=== PATIENT | male | born 1950 | race African-American/Black ===

== ENCOUNTER 2016-09-29 19:13 | Inpatient (IN) | payer OTHER ==
[2016-09-29] MEDS ORDERED: ASPIRIN 81 MG CHEWABLE TABLETS PO ONE (19:58)
[2016-09-29] MEDS ORDERED: NITROGLYCERIN SUBLINGUAL 1/150 0.4 MG TAB SL ONE (19:58)
[2016-09-29 20:01] LABS: BASOPHIL 0.5 % (0-2.0); EOSINOPHIL 0.1 % (0-4.5); MCH 33.1 pg (25.7-33.7); MCHC 33.6 g/dl (32.0-35.9); MEAN CELL VOLUME 98.4 fl (80-96); MEAN PLT VOLUME 9.2 fl (7.5-11.1); NEUTROPHILS 78.8 % (42.8-82.8); PLATELET COUNT 157 K/MM3 (134-434); RDW 16.1 % (11.9-15.9)
[2016-09-29] MEDS ORDERED: ASPIRIN 81 MG CHEWABLE TABLETS ONE (20:04)
[2016-09-29 20:15] LABS: INR 1.38 (0.82-1.09); PROTHROMBIN TIME (PATIENT) 15.3 SEC (9.98-11.88)
[2016-09-29 20:47] LABS: MAGNESIUM 1.9 mg/dL (1.8-2.4); PHOSPHOROUS 3.1 mg/dL (2.5-4.9)
[2016-09-29 20:48] LABS: ALBUMIN 3.4 g/dl (3.4-5.0); ANION GAP 11 (8-16); BILIRUBIN,TOTAL 0.6 mg/dL (0.2-1.0); CALCIUM 9.4 mg/dL (8.5-10.1); CO2 29 mmol/L (21-32); GLUCOSE,RANDOM 116 mg/dL (74-106); SGOT/AST 11 U/L (15-37); SGPT/ALT 15 U/L (12-78); TOT PROT 7.3 g/dl (6.4-8.2)
[2016-09-29 20:53] LABS: ALK PHOS 107 U/L (45-117); TROPONIN I < 0.02 ng/ml (0.00-0.05)
--- NOTE | 2016-09-29 20:55 | PDOC ---
History of Present Illness - History of Present Illness Initial Comments: 09/29/16 21:12 Patient is a 66 year old male with significant medical hx of ESRD, H/O HD and peritoneal dialysis, HTN and multiple myeloma (no chemotherapy for several years ) who is presenting to the ED with intermittent chest pain since this morning. Patient reports his chest pain worsens with deep inspiration and occasionally with exertion. He describes his pain as a tightness and it is localized to the center of his chest without any radiation. The patient also endorses some rhinorrhea and one episode of cough. Denies shortness of breath, fever, vomiting, or diarrhea. NKDA PCP : Tasha Coronado Chip Frier : Paloma Quinones Penal Officer: Gagan Garham MD <Angeles Yeboah - Last Filed: 09/29/16 21:12> - General History Source: Patient, Old Records Exam Limitations: No Limitations <Gerardo Torres - Last Filed: 09/29/16 22:12> - General Chief Complaint: Chest Pain Stated Complaint: CHEST PAIN Time Seen by Provider: 09/29/16 19:45 Past History <Angeles Yeboah - Last Filed: 09/29/16 21:12> - Past Medical History Anemia: Yes Asthma: No Cancer: Yes (multiple myeloma) CVA: No COPD: No CHF: No Dementia: No Diabetes: No Dialysis: Yes GI Disorders: No Disorders: No HTN: Yes Liver Disease: No Seizures: No Thyroid Disease: No - Surgical History Abdominal Surgery: No Appendectomy: No Cardiac Surgery: No Cholecystectomy: No Gastric Stapling: No GI Surgery: No Lung Surgery: No Neurologic Surgery: No Orthopedic Surgery: Yes (right shoulder) - Immunization History Td Vaccination: Yes Immunization Up to Date: Yes - Psycho/Social/Smoking Cessation Hx Anxiety: No Suicidal Ideation: No Smoking Status: No Smoking History: Never smoked Have you smoked in the past 12 months: No Number of Cigarettes Smoked Daily: 0 Information on smoking cessation initiated: No Hx Alcohol Use: No Drug/Substance Use Hx: No Substance Use Type: None Hx Substance Use Treatment: No <Gerardo Torres - Last Filed: 09/29/16 22:12> - Past Medical History Allergies/Adverse Reactions: Allergies Allergy/AdvReac Type Severity Reaction Status Date / Time No Known Allergies Allergy Verified 10/12/15 15:06 Home Medications: Ambulatory Orders Sevelamer Carbonate [Renvela -] 2,400 mg PO TID 08/08/13 Aspirin [Ecotrin] 81 mg PO DAILY 09/29/16 Review of Systems - Review of Systems Comments:: 09/29/16 21:13 GENERAL/CONSTITUTIONAL: No fever or chills. No weakness. HEAD, EYES, EARS, NOSE AND THROAT: Rhinorrhea. No change in vision. No ear pain or discharge. No sore throat. CARDIOVASCULAR: Chest pain. No shortness of breath. RESPIRATORY: Cough. No wheezing or hemoptysis. GASTROINTESTINAL: No nausea, vomiting, diarrhea or constipation. GENITOURINARY: No dysuria, frequency, or change in urination. MUSCULOSKELETAL: No joint or muscle swelling or pain. No neck or back pain. SKIN: No rash NEUROLOGIC: No headache, vertigo, loss of consciousness, or change in strength/ sensation. <Angeles Yeboah - Last Filed: 09/29/16 21:12> *Physical Exam - Vital Signs Last Vital Signs Temp Pulse Resp BP Pulse Ox 98.4 F 94 H 18 142/87 100 09/29/16 19:20 09/29/16 19:20 09/29/16 19:20 09/29/16 19:20 09/29/16 19:59 - Physical Exam Comments: 09/29/16 21:14 GENERAL: Awake, alert, and fully oriented, in no acute distress HEAD: No signs of trauma EYES: PERRLA, EOMI, sclera anicteric, conjunctiva clear ENT: Auricles normal inspection, hearing grossly normal, nares patent, oropharynx clear without exudates. Moist mucosa NECK: Normal ROM, supple, no lymphadenopathy, JVD, or masses LUNGS: Breath sounds equal, clear to auscultation bilaterally. No wheezes, and no crackles HEART: Regular rate and rhythm, normal S1 and S2, no murmurs, rubs or gallops ABDOMEN: Soft, nontender, normoactive bowel sounds. No guarding, no rebound. No masses EXTREMITIES: Left upper extremity av fistula with palpable thrill. Normal range of motion, no edema. No clubbing or cyanosis. NEUROLOGICAL: Cranial nerves II through XII grossly intact. Normal speech, normal gait SKIN: Warm, Dry, normal turgor, no rashes or lesions noted. ENDOCRINE: No increased thirst. No abnormal weight change. HEMATOLOGIC/LYMPHATIC: No anemia, easy bleeding, or history of blood clots. ALLERGIC/IMMUNOLOGIC: No hives or skin allergy. <EdiliaAngeles - Last Filed: 09/29/16 21:12> - Vital Signs Last Vital Signs Temp Pulse Resp BP Pulse Ox 98.4 F 94 H 18 142/87 100 09/29/16 19:20 09/29/16 19:20 09/29/16 19:20 09/29/16 19:20 09/29/16 19:59 <Gerardo Torres - Last Filed: 09/29/16 22:12> Heart Score/ECG Review - History History: Moderately suspicious - Electrocardiogram EKG: Non specific repolarization disturbance - Age Age: >/= 65 - Risk Factors Based on the list above the patient has:: >/=3 risk factors or Hx atherosclerotic disease - Troponin Troponin: </= normal limit - Score Heart Score - Total: 6 #1 ECG reviewed & interpreted by me at: 19:25 09/29/16 20:37 NSR 109, no std,iqra, Q wave V1-V2, T wave flat III, QTC 420 msec <Gerardo Torres - Last Filed: 09/29/16 22:12> ED Treatment Course - LABORATORY CBC & Chemistry Diagram: 09/29/16 19:40 09/29/16 19:40 - ADDITIONAL ORDERS Additional order review: Laboratory Results 09/29/16 09/29/16 09/29/16 19:40 19:40 19:40 INR Phosphorus 3.1 D Magnesium 1.9 D Alkaline Phosphatase 107 Creatine Kinase 127 Troponin I < 0.02 Blood Type O POSITIVE Antibody Screen Negative 09/29/16 19:40 INR 1.38 H Phosphorus Magnesium Alkaline Phosphatase Creatine Kinase Troponin I Blood Type Antibody Screen 09/29/16 19:40 RBC 3.43 L D MCV 98.4 H MCHC 33.6 RDW 16.1 H MPV 9.2 Neutrophils % 78.8 D Lymphocytes % 6.4 L D Monocytes % 14.2 H Eosinophils % 0.1 D Basophils % 0.5 - Medications Given in the ED: ED Medications Discontinued Medications Generic Name Dose Route Start Last Admin Trade Name Freq PRN Reason Stop Dose Admin Aspirin 324 mg 09/29/16 19:58 09/29/16 20:14 Asa - PO 09/29/16 19:59 324 mg ONCE ONE Administration Nitroglycerin 0.4 mg 09/29/16 19:58 09/29/16 20:14 Nitrostat - SL 09/29/16 19:59 0.4 mg ONCE ONE Administration <Angeles Yeboah - Last Filed: 09/29/16 21:12> - LABORATORY CBC & Chemistry Diagram: 09/29/16 19:40 09/29/16 19:40 - ADDITIONAL ORDERS Additional order review: Laboratory Results 09/29/16 19:40 INR 1.38 H 09/29/16 19:40 RBC 3.43 L D MCV 98.4 H MCHC 33.6 RDW 16.1 H MPV 9.2 Neutrophils % 78.8 D Lymphocytes % 6.4 L D Monocytes % 14.2 H Eosinophils % 0.1 D Basophils % 0.5 - RADIOLOGY Radiology Studies Ordered: Category Date Time Status CHEST X-RAY PORTABLE* [RAD] Stat Radiology 09/29/16 19:47 Taken - Medications Given in the ED: ED Medications Discontinued Medications Generic Name Dose Route Start Last Admin Trade Name Rk PRN Reason Stop Dose Admin Aspirin 324 mg 09/29/16 19:58 09/29/16 20:14 Asa - PO 09/29/16 19:59 324 mg ONCE ONE Administration Nitroglycerin 0.4 mg 09/29/16 19:58 09/29/16 20:14 Nitrostat - SL 09/29/16 19:59 0.4 mg ONCE ONE Administration <Gerardo Torres - Last Filed: 09/29/16 22:12> Medical Decision Making - Medical Decision Making 09/29/16 20:38 A portion of this note was documented by scribe services under my direction. I have reviewed the details of the note, within reason, and agree with the documentation with the following case summary and management plan written by me. Patient treated in the ED. Nursing notes are reviewed and incorporated into the medical decision-making. Vital signs reviewed. Peripheral IV access obtained by the nurse, laboratory studies are drawn and sent, reviewed and interpreted by myself. Vital Signs Temp Pulse Resp BP Pulse Ox 98.4 F 94 H 18 142/87 100 09/29/16 19:20 09/29/16 19:20 09/29/16 19:20 09/29/16 19:20 09/29/16 19:59 66-year-old male with past medical history multiple myeloma, end-stage renal disease on dialysis with a left upper showing fistula, last dialysis today presents to the emergency department for chest tightness since this morning. Patient had woke up with his chest tightness that was intermittent exertional. Somewhat associate shortness of breath but not constant. Denies diaphoresis or radiation. Denies any abdominal pain. He had went to dialysis includes session by persistent pain so came to the ED. Patient please that he had a negative workup several years ago with a stress test with Dr. Escalante. Patient was given nitroglycerin here with moderate amount of improvement. We'll need to workup for rule out SC. We'll obtain labs including troponin. We'll give aspirin and admit the patient to hospital. 09/29/16 22:11 CBC, BMP 09/29/16 19:40 09/29/16 19:40 CMP Sodium 133 mmol/L (136-145) L 09/29/16 19:40 Potassium 3.1 mmol/L (3.5-5.1) L 09/29/16 19:40 Chloride 93 mmol/L (98-107) L 09/29/16 19:40 Carbon Dioxide 29 mmol/L (21-32) 09/29/16 19:40 Anion Gap 11 (8-16) 09/29/16 19:40 BUN 47 mg/dL (7-18) H D 09/29/16 19:40 Creatinine 15.7 mg/dL (0.7-1.3) H* 09/29/16 19:40 Creat Clearance w eGFR 3.12 (>60) 09/29/16 19:40 Random Glucose 116 mg/dL (74-106) H D 09/29/16 19:40 Calcium 9.4 mg/dL (8.5-10.1) 09/29/16 19:40 Phosphorus 3.1 mg/dL (2.5-4.9) D 09/29/16 19:40 Magnesium 1.9 mg/dL (1.8-2.4) D 09/29/16 19:40 Total Bilirubin 0.6 mg/dL (0.2-1.0) 09/29/16 19:40 AST 11 U/L (15-37) L D 09/29/16 19:40 ALT 15 U/L (12-78) D 09/29/16 19:40 Alkaline Phosphatase 107 U/L (45-117) 09/29/16 19:40 Creatine Kinase 127 IU/L (39-308) 09/29/16 19:40 Troponin I < 0.02 ng/ml (0.00-0.05) 09/29/16 19:40 Total Protein 7.3 g/dl (6.4-8.2) D 09/29/16 19:40 Albumin 3.4 g/dl (3.4-5.0) D 09/29/16 19:40 20 meq potassium ordered for potassium of 3.1 Pt reports feeling better. Given improvement with nitro, case was discussed with Dr. Marroquin. he accepts patient under telemetry admission under Dr. Coronado. <Gerardo Torres - Last Filed: 09/29/16 22:12> *DC/Admit/Observation/Transfer - Attestations Scribe Attestion: 09/29/16 21:15 Documentation prepared by Angeles Yeboah, acting as medical interpreter for Gerardo Torres MD. <Angeles Yeboah - Last Filed: 09/29/16 21:12> - Discharge Dispostion Admit: Yes <Gerardo Torres - Last Filed: 09/29/16 22:12> Diagnosis at time of Disposition: Chest pain Qualifiers: Chest pain type: unspecified Qualified Code(s): R07.9 - Chest pain, unspecified - Discharge Dispostion Condition at time of disposition: Stable - Referrals Referrals: Tasha Coronado MD [Primary Care Provider] -
[2016-09-29 21:12] LABS: CREATININE 15.7 mg/dL (0.7-1.3)
[2016-09-29] MEDS ORDERED: POTASSIUM CHLORIDE TABS 20 MEQ TABLET.ER (FP) PO ONE ×2 (21:31→23:10)
[2016-09-30 03:16] VITALS: BMI 22.6
[2016-09-30 04:19] LABS: TROPONIN I 0.02 ng/ml (0.00-0.05)
[2016-09-30 07:04] LABS: MCH 32.8 pg (25.7-33.7); MCHC 33.3 g/dl (32.0-35.9); MEAN CELL VOLUME 98.4 fl (80-96); MEAN PLT VOLUME 8.9 fl (7.5-11.1); PLATELET COUNT 105 K/MM3 (134-434); WHITE BLOOD COUNT 11.1 K/mm3 (4.0-10.0)
[2016-09-30 08:59] LABS: CALCIUM 8.7 mg/dL (8.5-10.1)
[2016-09-30 09:10] LABS: ALBUMIN 2.6 g/dl (3.4-5.0); BILIRUBIN,TOTAL 0.6 mg/dL (0.2-1.0); MAGNESIUM 1.7 mg/dL (1.8-2.4); PHOSPHOROUS 3.8 mg/dL (2.5-4.9); TOT PROT 5.7 g/dl (6.4-8.2)
[2016-09-30 10:43] LABS: CREATININE 16.3 mg/dL (0.7-1.3)
[2016-09-30 11:32] LABS: TROPONIN I 0.02 ng/ml (0.00-0.05)
--- NOTE | 2016-09-30 12:07 | CONSULT ---
Consult - text type - Consultation Consultation Note: Renal Consult for ESRD on PD This is a 64 /o Gentleman with PMhx of ESRD on PD x 2 years and was on HD before , Hx of Myloma who presented to the ED with complaints of intermittent chest pain. Pt states that he woke up with chest pain yesterday. Denies any N/V, diaphoresis. No radiation. CP is better now but still feels it with deep inspiration. No flank pain. No GARNETT, SOB, Abd pain, N/V/D. Denies any cloudy PD fluid. Clearance with PD has been good when checked in the outpatient HD unit. PMhx: As Above Allergies: NKDA Family Hx: NC Social Hx: No T/A/D ROS: As per HPI, all other pertinent ros negative Home Meds: Home Medications Medication Instructions Recorded Sevelamer Carbonate [Renvela -] 2,400 mg PO TID 08/08/13 Aspirin [Ecotrin] 81 mg PO DAILY 09/29/16 Vital Signs Temperature 98.7 F 09/30/16 09:00 Pulse Rate 89 09/30/16 09:00 Respiratory Rate 18 09/30/16 09:00 Blood Pressure 124/58 09/30/16 09:00 O2 Sat by Pulse Oximetry (%) 97 09/30/16 09:05 Intake & Output 09/27/16 09/28/16 09/29/16 09/30/16 23:59 23:59 23:59 23:59 Intake Total 100 Balance 100 Weight 155 lb 140 lb Gen: NAD, Awake and Alert HEENT: NC/AT, MMM, No JVD CVS: RRR, No audible rub Lungs: CTA Abd: Soft, + distension,No tenderness Ext: No edema, clubbing, cyanosis Neuro: AAOX3, no focal defects CBC, BMP 09/30/16 05:20 09/30/16 05:20 Laboratory Tests 09/30/16 05:20 Calcium 8.7 Phosphorus 3.8 D Magnesium 1.7 L Albumin 2.6 L D A/P 64 /o Gentleman with PMhx of ESRD on PD x 2 years and was on HD before, Hx of Myloma who presented to the ED with complaints of intermittent chest pain. #Chest pain r/o ACS and pericarditis Cardiac Enzymes are negative x 2 [address] with diffuse ST elevations and UT depressions that are consistent with pericarditis ECHO is pending It is unlikely that uremia is the etiology of pericarditis as pt's BUN is not that elevated. Cr remains high as that is not is well cleared with PD but Cr it self is not a uremic toxin. Clearance when tested in the outpatient unit is above gaol. Tele Monitoring Cardiology Evaluation #ESRD on PD Will continue CAPD as inpatient Q6h Pt to perform procedure by himself Pt uses varying solutions throughout the day (1.5/2.5/1.5/extraneal) Trend BUN/Cr Transfer to single room as to decrease infectious risk to the patient #Anemia Trend CBC Will continue GALINA as per schedule #Renal Osteodystrphy Continue phos binder Thank you Will follow Hesham Hughes DO
--- NOTE | 2016-09-30 13:08 | PN ---
Progress Note, Physician Chief Complaint: Pt sitting in the bed No chest pain now,no sob cardiology consult pending - Current Medication List Current Medications: Active Medications Chlorhexidine Gluconate (Hibiclens For Decolonization -) 1 applic TP HS NISSA Peritoneal Dialysis Solution (Dianeal 1.5%) 2,000 mls @ 4,000 mls/hr IP 0600, 1200 NISSA Peritoneal Dialysis Solution (Dianeal 2.5%) 2,500 mls @ 5,000 mls/hr IP 1800 NISSA Mupirocin (Bactroban 2% Cream -) 1 applic TP TID NISSA - Objective Vital Signs: Vital Signs Temperature 98.7 F 09/30/16 09:00 Pulse Rate 89 09/30/16 09:00 Respiratory Rate 18 09/30/16 09:00 Blood Pressure 124/58 09/30/16 09:00 O2 Sat by Pulse Oximetry (%) 97 09/30/16 09:05 Constitutional: Yes: No Distress Eyes: Yes: Conjunctiva Clear HENT: Yes: Atraumatic, Normocephalic Neck: Yes: Supple, Trachea Midline Cardiovascular: Yes: Regular Rate and Rhythm Respiratory: Yes: Regular, CTA Bilaterally Gastrointestinal: Yes: Other (Peritoneal catheter in place) Musculoskeletal: Yes: WNL Extremities: Yes: WNL Edema: No Peripheral Pulses WNL: Yes Neurological: Yes: WNL, Alert, Oriented Psychiatric: Yes: Alert, Oriented Labs: CBC, BMP 09/30/16 05:20 09/30/16 05:20 INR, PTT INR 1.38 (0.82-1.09) H 09/29/16 19:40 - ....Imaging Chest X-ray: Report Reviewed EKG: Report Reviewed Assessment/Plan Chest pain r/o ACS EsRd on dialysis PLAN Cardiology consult Will f/u echo report Continue home meds K suppliment
[2016-09-30] MEDS ORDERED: POTASSIUM CHLORIDE TABS 20 MEQ TABLET.ER (FP) PO ONE (13:09)
--- NOTE | 2016-09-30 13:45 | HP ---
DATE OF ADMISSION: DATE OF DICTATION: 09/30/2016 HISTORY OF PRESENT ILLNESS: Patient is a 66-year-old male, date of 1950, with a past medical history of end-stage renal disease, on peritoneal dialysis, hypertension, multiple myeloma, who came to the emergency room with intermittent chest pain since yesterday morning. Patient reports chest pain worsens with deep inspiration, occasionally with exertion. Patient denies any palpitations, shortness of breath. Occasionally, patient felt tightness and localized to the center of his chest without any radiation. Complains of mild rhinorrhea. No fever. No vomiting. No diarrhea. ALLERGIES: No known drug allergy. MEDICATIONS: Patient is on Renvela and aspirin. SURGICAL HISTORY: History of left knee surgery and right shoulder surgery. SOCIAL HISTORY: Patient lives with the family. No history of smoking, alcohol, or drug. PAST MEDICAL HISTORY: History of anemia, multiple myeloma, end-stage urinary disease, on dialysis. REVIEW OF SYSTEMS: General/Constitutional: No fever. No chills. Head and Neck: Nothing significant. Cardiovascular: Mild chest pain. No shortness of breath. Respiratory: Mild cough. No wheezing. No hemoptysis. Gastrointestinal: No vomiting. No diarrhea. Genitourinary: End-stage renal disease. Musculoskeletal: No joint pain. Neurological: Nothing significant. PHYSICAL EXAMINATION: Vital Signs: On examination of the patient in the emergency room, temperature 98.4, pulse rate 94, respiration 18, blood pressure 142/87, and saturation 100%. General: On examination, the patient awake, alert, oriented, in no acute distress. Head and Neck: Normal. Neck supple. No JVD. Lungs: Equal breath sounds bilaterally. Equally clear to auscultation. No wheeze. No crackles. Heart: First and 2nd sound normal. Abdomen: Soft and nontender. No tenderness. No distention. Peritoneal dialysis catheter in place. Extremities: No edema. Neurological: Cranial nerves II-XII normal. No apparent motor or sensory deficit. Reflexes normal. DIAGNOSTIC DATA: EKG shows normal sinus rhythm, heart rate of 109, left atrial enlargement, T waves were flat in lead III. Chest x-ray shows a large heart, fluid in the horizontal fissure, increased marking in the lung base. Cardiac enzymes x2 negative. CBC normal. CMP: BUN 47, creatinine 15.7, sugar 116, sodium 133, potassium 3.1. INR 1.38. Patient was given nitroglycerin in the ER. Pain relieved. Patient admitted to the floor. ADMITTING DIAGNOSES: Chest pain. End-stage renal disease, on peritoneal dialysis. Hypokalemia. PLAN: Cardiology consult. Renal consult. Continue peritoneal dialysis, aspirin. Will continue Renvela. Will monitor the cardiac enzymes. Renal diet resumed. Patient stable on the floor. Iliana [id number]
[2016-09-30] MEDS ORDERED: GENTAMICIN SO4 0.1% TOP CREAM 15 GM/TUBE TP SCH (14:00)
[2016-09-30] MEDS: MUPIROCIN CA 2% TOPICAL CREAM 15 GM TUBE TP SCH ×2 (15:10→21:17)
[2016-09-30] MEDS: SEVELAMER CARBONATE 800 MG TAB (FP) PO SCH (17:15)
[2016-09-30] MEDS: PERITONEAL DIALYSIS 2.5% SOLN 2,500 ML IP SCH (21:19)
[2016-09-30] MEDS: CHLORHEXIDINE GLUCONATE 4% CLEANSER FOR DECOLONIZATION TP SCH (21:19)
[2016-10-01] MEDS: MUPIROCIN CA 2% TOPICAL CREAM 15 GM TUBE TP SCH ×3 (06:38→21:46)
[2016-10-01] MEDS: PERITONEAL DIALYSIS 1.5% SOLN 2,000 ML IP SCH ×2 (06:39→17:29)
[2016-10-01] MEDS: SEVELAMER CARBONATE 800 MG TAB (FP) PO SCH ×3 (07:59→17:30)
[2016-10-01 08:10] LABS: MCH 32.5 pg (25.7-33.7); MCHC 33.4 g/dl (32.0-35.9); MEAN CELL VOLUME 97.4 fl (80-96); MEAN PLT VOLUME 8.8 fl (7.5-11.1); PLATELET COUNT 100 K/MM3 (134-434); RDW 15.7 % (11.9-15.9); WHITE BLOOD COUNT 6.7 K/mm3 (4.0-10.0)
[2016-10-01 08:50] LABS: ALBUMIN 2.6 g/dl (3.4-5.0); BILIRUBIN,TOTAL 0.4 mg/dL (0.2-1.0); CALCIUM 8.9 mg/dL (8.5-10.1); TOT PROT 5.9 g/dl (6.4-8.2)
[2016-10-01 09:02] LABS: CREATININE 16.1 mg/dL (0.7-1.3)
--- NOTE | 2016-10-01 09:32 | CON.CARD ---
Consult Consult Specialty:: Cardiology Referred by:: Tasha Coronado MD Reason for Consultation:: Chest pain - History of Present Illness Chief Complaint: Chest pain History of Present Illness: Patient is a 66 year old male with underlying history of ESRD, H/O HD and peritoneal dialysis for 2 years, HTN and multiple myeloma (no chemotherapy for several years) presented with complaints of intermittent non-positional pleuritic chest tightness since resolved, he denies associated dyspnea, palpitations, near or true syncope, orthopnea, PND or LE edema,. He also denies any cloudy PD fluid. Clearance with PD has been good when checked in the outpatient HD unit. PMhx: As Above Allergies: NKDA Family Hx: NC Social Hx: No T/A/D ROS: As per HPI, all other pertinent ros negative - History Source History Provided By: Patient Limitations to Obtaining History: No Limitations - Past Medical History Cardio/Vascular: Yes: HTN Renal/: Yes: Renal Failure, Hemodialysis, Other (Peritoneal dialysis) - Past Surgical History Past Surgical History: Yes: AV Fistula/Graft - Alcohol/Substance Use Hx Alcohol Use: No - Smoking History Smoking history: Never smoked Have you smoked in the past 12 months: No Aproximately how many cigarettes per day: 0 Home Medications - Allergies Allergies/Adverse Reactions: Allergies Allergy/AdvReac Type Severity Reaction Status Date / Time No Known Allergies Allergy Verified 10/12/15 15:06 - Home Medications Home Medications: Ambulatory Orders Sevelamer Carbonate [Renvela -] 2,400 mg PO TID 08/08/13 Aspirin [Ecotrin] 81 mg PO DAILY 09/29/16 Review of Systems - Review of Systems Cardiovascular: reports: Chest Pain Vital Signs: Vital Signs Temperature 98.8 F 10/01/16 06:00 Pulse Rate 77 10/01/16 06:00 Respiratory Rate 18 10/01/16 06:00 Blood Pressure 124/68 10/01/16 06:00 O2 Sat by Pulse Oximetry (%) 97 09/30/16 21:00 Constitutional: Yes: No Distress, Calm, Thin Neck: Yes: Supple Respiratory: Yes: Regular, CTA Bilaterally Gastrointestinal: Yes: Normal Bowel Sounds, Soft Cardiovascular: Yes: Regular Rate and Rhythm, Other (No rubs) JVD: No Carotid Bruit: No Heart Sounds: Yes: S1, S2 Murmur: Yes: Systolic Murmur, Grade 2 Edema: No - Other Data Labs, Other Data: CBC, BMP 10/01/16 06:00 10/01/16 06:00 INR, PTT INR 1.38 (0.82-1.09) H 09/29/16 19:40 Troponin, BNP 09/30/16 10:40 Troponin I 0.02 Troponin, BNP 09/30/16 10:40 Troponin I 0.[address] changes c/w pericarditis Imaging - Results Chest X-ray: Report Reviewed (NAD) Problem List - Problems (1) Anemia Code(s): D64.9 - ANEMIA, UNSPECIFIED (2) Thrombocytopenia Code(s): D69.6 - THROMBOCYTOPENIA, UNSPECIFIED (3) End stage renal disease on dialysis Code(s): N18.6 - END STAGE RENAL DISEASE Z99.2 - DEPENDENCE ON RENAL DIALYSIS (4) Pericarditis Code(s): I31.9 - DISEASE OF PERICARDIUM, UNSPECIFIED Qualifiers: Pericarditis type: other type Chronicity: acute Qualified Code(s ): I30.8 - Other forms of acute pericarditis (5) Multiple myeloma in remission Code(s): C90.01 - MULTIPLE MYELOMA IN REMISSION Assessment/Plan Echocardiogram performed 11/19/2014 revealed normal LV size and function with mild MR and TR 1. Chest pain syndrome c/w uremic pericarditis 2. 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 Anemia and thrombocytopenia 4. History of multiple myeloma post autologous stem cell transplant 5. Hypokalemia 6. Hypertension PLAN: 1. Peritoneal dialysis as per the renal team, replete K 3. Resume Toprol XL 25 qd with uptitration as tolerated, continue ASA 3. F/u with echo to assess for effusion, ruled out for OK 4. Thank you for consultative opportunity
[2016-10-01] MEDS: METOPROLOL SUCCINATE 25 MG TAB.SR.24H (FP) PO SCH (10:20)
[2016-10-01] MEDS: ASPIRIN COATED 81 MG TABLET.EC PO SCH (10:20)
[2016-10-01] MEDS ORDERED: POTASSIUM CHLORIDE TABS 20 MEQ TABLET.ER (FP) PO ONE (10:30)
--- NOTE | 2016-10-01 11:21 | EKG ---
Test Reason : Blood Pressure : / mmHG Vent. Rate : 109 BPM Atrial Rate : 109 BPM P-R Int : 188 ms QRS Dur : 082 ms QT Int : 312 ms P-R-T Axes : 048 007 026 degrees QTc Int : 420 ms SINUS TACHYCARDIA POSSIBLE LEFT ATRIAL ENLARGEMENT SEPTAL INFARCT , AGE UNDETERMINED ABNORMAL ECG WHEN COMPARED WITH ECG OF 05-APR-2015 11:16, NO SIGNIFICANT CHANGE WAS FOUND Confirmed by VERA MAGAÑA MD ([id number]) on 10/01/2016 11:21:27 AM Referred By: Confirmed By:VERA MAGAÑA MD
--- NOTE | 2016-10-01 11:28 | EKG ---
Test Reason : Blood Pressure : / mmHG Vent. Rate : 091 BPM Atrial Rate : 091 BPM P-R Int : 174 ms QRS Dur : 090 ms QT Int : 350 ms P-R-T Axes : 055 028 046 degrees QTc Int : 430 ms NORMAL SINUS RHYTHM POSSIBLE LEFT ATRIAL ENLARGEMENT SEPTAL INFARCT (CITED ON OR BEFORE 29-SEP-2016) ST ELEVATION, CONSIDER EARLY REPOLARIZATION, PERICARDITIS, OR INJURY ABNORMAL ECG WHEN COMPARED WITH ECG OF 29-SEP-2016 19:22, ST ELEVATION NOW PRESENT IN INFERIOR LEADS Confirmed by VERA MAGAÑA MD ([id number]) on 10/01/2016 11:28:08 AM Referred By: Confirmed By:VERA MAGAÑA MD
[2016-10-01] MEDS: PERITONEAL DIALYSIS 2.5% SOLN 2,500 ML IP SCH ×2 (12:31→17:35)
[2016-10-01 14:23] LABS: PLATELET ESTIMATE DECREASED (NORMAL)
--- NOTE | 2016-10-01 15:50 | PN ---
Progress Note, Physician Chief Complaint: Pt sitting in the bed No chest pain now,no sob cardiology consult appreciated for ECHO - Current Medication List Current Medications: Active Medications Aspirin (Ecotrin -) 81 mg PO DAILY [facility] Last Admin: 10/01/16 10:20 Dose: 81 mg Chlorhexidine Gluconate (Hibiclens For Decolonization -) 1 applic TP HS [facility] Last Admin: 09/30/16 21:19 Dose: 1 applic Peritoneal Dialysis Solution (Dianeal 1.5%) 2,000 mls @ 4,000 mls/hr IP 0600, 1200 [facility] Last Admin: 10/01/16 06:39 Dose: 4,000 mls/hr Peritoneal Dialysis Solution (Dianeal 2.5%) 2,500 mls @ 5,000 mls/hr IP 1800 [facility] Last Admin: 10/01/16 12:31 Dose: 5,000 mls/hr Metoprolol Succinate (Toprol Xl -) 25 mg PO DAILY [facility] Last Admin: 10/01/16 10:20 Dose: 25 mg Mupirocin (Bactroban 2% Cream -) 1 applic TP TID [facility] Last Admin: 10/01/16 06:38 Dose: 1 applic Sevelamer Carbonate (Renvela -) 2,400 mg PO TIDCM [facility] Last Admin: 10/01/16 12:30 Dose: 2,400 mg - Objective Vital Signs: Vital Signs Temperature 98.2 F 10/01/16 09:00 Pulse Rate 84 10/01/16 09:00 Respiratory Rate 18 10/01/16 09:00 Blood Pressure 110/75 10/01/16 09:00 O2 Sat by Pulse Oximetry (%) 97 10/01/16 09:00 Constitutional: Yes: No Distress Eyes: Yes: Conjunctiva Clear HENT: Yes: Atraumatic, Normocephalic Neck: Yes: Supple, Trachea Midline Cardiovascular: Yes: Regular Rate and Rhythm Respiratory: Yes: Regular, CTA Bilaterally Gastrointestinal: Yes: Normal Bowel Sounds, Soft Musculoskeletal: Yes: WNL Extremities: Yes: WNL Edema: No Peripheral Pulses WNL: Yes Neurological: Yes: WNL, Alert, Oriented ...Motor Strength: WNL Psychiatric: Yes: Alert, Oriented Labs: CBC, BMP 10/01/16 06:00 10/01/16 06:00 INR, PTT INR 1.38 (0.82-1.09) H 09/29/16 19:40 Assessment/Plan Chest pain r/o ACS pericarditis Anemia,thrombocytopenia EsRd on dialysis Multiple myeloma in remission Hypokalemia PLAN Cardiology consult for echo Continue home meds K suppliment monitor CBC and CMP
[2016-10-01] MEDS: CHLORHEXIDINE GLUCONATE 4% CLEANSER FOR DECOLONIZATION TP SCH (21:47)
[2016-10-02] MEDS: MUPIROCIN CA 2% TOPICAL CREAM 15 GM TUBE TP SCH ×2 (06:41→15:17)
[2016-10-02] MEDS: PERITONEAL DIALYSIS 1.5% SOLN 2,000 ML IP SCH ×2 (06:41→15:14)
[2016-10-02 07:36] LABS: MCH 33.9 pg (25.7-33.7); MEAN CELL VOLUME 96.9 fl (80-96); MEAN PLT VOLUME 9.4 fl (7.5-11.1); PLATELET COUNT 97 K/MM3 (134-434); RDW 15.6 % (11.9-15.9); WHITE BLOOD COUNT 5.8 K/mm3 (4.0-10.0)
[2016-10-02 08:03] LABS: ALBUMIN 2.5 g/dl (3.4-5.0); CALCIUM 8.6 mg/dL (8.5-10.1)
[2016-10-02 08:13] LABS: BILIRUBIN,TOTAL 0.6 mg/dL (0.2-1.0); TOT PROT 5.6 g/dl (6.4-8.2)
[2016-10-02 08:45] LABS: CREATININE 16.1 mg/dL (0.7-1.3)
[2016-10-02] MEDS ORDERED: PT OWN MED DRAWER 7, Y5N ONE ×2 (08:48→12:22)
[2016-10-02] MEDS: SEVELAMER CARBONATE 800 MG TAB (FP) PO SCH ×3 (08:50→18:04)
--- NOTE | 2016-10-02 09:12 | PN ---
Progress Note, Physician Chief Complaint: Pt sitting in the bed No chest pain now,no sob cardiology consult appreciated for ECHO today hypokalemia and thrombocytopenia - Current Medication List Current Medications: Active Medications Aspirin (Ecotrin -) 81 mg PO DAILY [facility] Last Admin: 10/01/16 10:20 Dose: 81 mg Chlorhexidine Gluconate (Hibiclens For Decolonization -) 1 applic TP HS [facility] Last Admin: 10/01/16 21:47 Dose: Not Given Peritoneal Dialysis Solution (Dianeal 1.5%) 2,000 mls @ 4,000 mls/hr IP 0600, 1200 [facility] Last Admin: 10/02/16 06:41 Dose: 4,000 mls/hr Peritoneal Dialysis Solution (Dianeal 2.5%) 2,500 mls @ 5,000 mls/hr IP 1800 [facility] Last Admin: 10/01/16 17:35 Dose: Not Given Metoprolol Succinate (Toprol Xl -) 25 mg PO DAILY [facility] Last Admin: 10/01/16 10:20 Dose: 25 mg Mupirocin (Bactroban 2% Cream -) 1 applic TP TID [facility] Last Admin: 10/02/16 06:41 Dose: 1 applic Sevelamer Carbonate (Renvela -) 2,400 mg PO TIDCM [facility] Last Admin: 10/02/16 08:50 Dose: 2,400 mg - Objective Vital Signs: Vital Signs Temperature 98.6 F 10/02/16 06:00 Pulse Rate 80 10/02/16 06:00 Respiratory Rate 20 10/02/16 06:00 Blood Pressure 121/64 10/02/16 06:00 O2 Sat by Pulse Oximetry (%) 98 10/01/16 21:00 Constitutional: Yes: No Distress Eyes: Yes: Conjunctiva Clear HENT: Yes: Atraumatic, Normocephalic Neck: Yes: Supple, Trachea Midline Cardiovascular: Yes: Regular Rate and Rhythm Respiratory: Yes: Regular, CTA Bilaterally Gastrointestinal: Yes: Normal Bowel Sounds, Soft Musculoskeletal: Yes: WNL Extremities: Yes: WNL Edema: No Peripheral Pulses WNL: Yes Neurological: Yes: Alert, Oriented ...Motor Strength: WNL Psychiatric: Yes: WNL, Alert, Oriented Labs: CBC, BMP 10/02/16 05:35 10/02/16 05:35 INR, PTT INR 1.38 (0.82-1.09) H 09/29/16 19:40 Assessment/Plan Chest pain r/o ACS pericarditis Anemia,thrombocytopenia EsRd on dialysis Multiple myeloma in remission Hypokalemia PLAN Cardiology consult for echo Continue home meds K suppliment monitor CBC and CMP hematology consult
[2016-10-02] MEDS: ASPIRIN COATED 81 MG TABLET.EC PO SCH (09:18)
[2016-10-02] MEDS: METOPROLOL SUCCINATE 25 MG TAB.SR.24H (FP) PO SCH (09:18)
[2016-10-02] MEDS ORDERED: POTASSIUM CHLORIDE TABS 20 MEQ TABLET.ER (FP) PO ONE (10:00)
--- NOTE | 2016-10-02 14:01 | PN ---
Progress Note, Physician Chief Complaint: Not in distress History of Present Illness: Patient was seen and examined. Awake and alert. Chart was reviewed Denies chest pain, SOB or palpitations - Current Medication List Current Medications: Active Medications Aspirin (Ecotrin -) 81 mg PO DAILY [facility] Last Admin: 10/02/16 09:18 Dose: 81 mg Chlorhexidine Gluconate (Hibiclens For Decolonization -) 1 applic TP HS [facility] Last Admin: 10/01/16 21:47 Dose: Not Given Peritoneal Dialysis Solution (Dianeal 1.5%) 2,000 mls @ 4,000 mls/hr IP 0600, 1200 [facility] Last Admin: 10/02/16 06:41 Dose: 4,000 mls/hr Peritoneal Dialysis Solution (Dianeal 2.5%) 2,500 mls @ 5,000 mls/hr IP 1800 [facility] Last Admin: 10/01/16 17:35 Dose: Not Given Metoprolol Succinate (Toprol Xl -) 25 mg PO DAILY [facility] Last Admin: 10/02/16 09:18 Dose: 25 mg Mupirocin (Bactroban 2% Cream -) 1 applic TP TID [facility] Last Admin: 10/02/16 06:41 Dose: 1 applic Sevelamer Carbonate (Renvela -) 2,400 mg PO TIDCM [facility] Last Admin: 10/02/16 12:23 Dose: 2,400 mg - Objective Vital Signs: Vital Signs Temperature 98 F 10/02/16 09:00 Pulse Rate 84 10/02/16 09:00 Respiratory Rate 18 10/02/16 09:00 Blood Pressure 110/56 10/02/16 09:00 O2 Sat by Pulse Oximetry (%) 98 10/02/16 09:00 Neck: Yes: Supple Cardiovascular: Yes: Regular Rate and Rhythm, Murmur (Systolic murmur), S1, S2 Respiratory: Yes: CTA Bilaterally Gastrointestinal: Yes: Normal Bowel Sounds, Soft. No: Tenderness Edema: No Labs: CBC, BMP 10/02/16 05:35 10/02/16 05:35 INR, PTT INR 1.38 (0.82-1.09) H 09/29/16 19:40 Problem List - Problems (1) Chest pain Code(s): R07.9 - CHEST PAIN, UNSPECIFIED Qualifiers: Chest pain type: unspecified Qualified Code(s): R07.9 - Chest pain, unspecified (2) End stage renal disease on dialysis Code(s): N18.6 - END STAGE RENAL DISEASE Z99.2 - DEPENDENCE ON RENAL DIALYSIS (3) Multiple myeloma in remission Code(s): C90.01 - MULTIPLE MYELOMA IN REMISSION (4) Pericarditis Code(s): I31.9 - DISEASE OF PERICARDIUM, UNSPECIFIED Qualifiers: Pericarditis type: other type Chronicity: acute Qualified Code(s ): I30.8 - Other forms of acute pericarditis (5) Anemia Code(s): D64.9 - ANEMIA, UNSPECIFIED Assessment/Plan 1. Chest pain syndrome c/w uremic pericarditis 2. 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 Anemia and thrombocytopenia 4. History of multiple myeloma post autologous stem cell transplant 5. Hypokalemia 6. Hypertension PLAN: 1. Continue peritoneal dialysis as per Renal recommendation 3. Continue Toprol XL 25 mg qd with uptitration as tolerated and continue ASA 3. Transthoracic echocardiography to assess LV and valvular function Further plans are to follow Guilherme Willard MD
--- NOTE | 2016-10-02 14:48 | PN ---
Progress Note (short form) - Note Progress Note: Renal Follow up for ESRD on PD Pt seen and examined at the bedside no acute complaints currently states that he is no longer having any chest pain s/p ECHO - no official report available Vital Signs Temperature 98 F 10/02/16 09:00 Pulse Rate 84 10/02/16 09:00 Respiratory Rate 18 10/02/16 09:00 Blood Pressure 110/56 10/02/16 09:00 O2 Sat by Pulse Oximetry (%) 98 10/02/16 09:00 Intake & Output 09/29/16 09/30/16 10/01/16 10/02/16 23:59 23:59 23:59 23:59 Intake Total 580 690 210 Balance 580 690 210 Weight 155 lb 140 lb Gen: NAD, Awake and Alert HEENT: NC/AT, MMM, No JVD CVS: RRR, No audible rub Lungs: CTA Abd: Soft, + distension,No tenderness Ext: No edema, clubbing, cyanosis CBC, BMP 10/02/16 05:35 10/02/16 05:35 Laboratory Tests 10/02/16 05:35 Calcium 8.6 Albumin 2.5 L Current Medications Aspirin (Ecotrin -) 81 mg PO DAILY [facility] Last Admin: 10/02/16 09:18 Dose: 81 mg Chlorhexidine Gluconate (Hibiclens For Decolonization -) 1 applic TP HS [facility] Last Admin: 10/01/16 21:47 Dose: Not Given Peritoneal Dialysis Solution (Dianeal 1.5%) 2,000 mls @ 4,000 mls/hr IP 0600, 1200 [facility] Last Admin: 10/02/16 06:41 Dose: 4,000 mls/hr Peritoneal Dialysis Solution (Dianeal 2.5%) 2,500 mls @ 5,000 mls/hr IP 1800 [facility] Last Admin: 10/01/16 17:35 Dose: Not Given Metoprolol Succinate (Toprol Xl -) 25 mg PO DAILY [facility] Last Admin: 10/02/16 09:18 Dose: 25 mg Mupirocin (Bactroban 2% Cream -) 1 applic TP TID [facility] Last Admin: 10/02/16 06:41 Dose: 1 applic Sevelamer Carbonate (Renvela -) 2,400 mg PO TIDCM [facility] Last Admin: 10/02/16 12:23 Dose: 2,400 mg A/P 64 /o Gentleman with PMhx of ESRD on PD x 2 years and was on HD before, Hx of Myloma who presented to the ED with complaints of intermittent chest pain. #Chest pain with suspected pericarditis ECHO results pending Chest pain appears resolved although uremic pericarditis is a possibility(usually when BUN > 60 and pt having poor clearance), pt is getting good clearance with PD so unlikely that change to Hemodialysis will be of much benefit Cardiology follow up #ESRD on PD Will continue CAPD as inpatient Q6h Dose all med for PD would avoid NSAIDs given pt has some residual renal function #Anemia Trend CBC Will continue GALINA as per schedule #Renal Osteodystrphy Continue phos binder Thank you Will follow Hesham Hughes DO
[2016-10-02] MEDS ORDERED: POTASSIUM CHLORIDE TABS 20 MEQ TABLET.ER (FP) PO SCH (15:00)
[2016-10-02] MEDS ORDERED: EPOETIN ALFA 20,000 UNIT/1 ML VIAL SQ ONE (16:30)
--- NOTE | 2016-10-02 17:46 | CONSULT ---
Consult - text type - Consultation Consultation Note: This is a 64 /o Gentleman with PMhx of ESRD on PD x 2 years and was on HD before , Hx of Myloma who presented to the ED with complaints of intermittent chest pain. Pt states that he woke up with chest pain. Denies any N/V, diaphoresis. No radiation. CP is better now but still feels it with deep inspiration. No flank pain. No GARNETT, SOB, Abd pain, N/V/D. Feels much better PMhx: As Above Allergies: NKDA ROS: As per HPI, all other pertinent ros negative Ambulatory Orders Sevelamer Carbonate [Renvela -] 2,400 mg PO TID 08/08/13 Aspirin [Ecotrin] 81 mg PO DAILY 09/29/16 Current Medications Aspirin (Ecotrin -) 81 mg PO DAILY [facility] Last Admin: 10/02/16 09:18 Dose: 81 mg Chlorhexidine Gluconate (Hibiclens For Decolonization -) 1 applic TP HS [facility] Last Admin: 10/01/16 21:47 Dose: Not Given Peritoneal Dialysis Solution (Dianeal 1.5%) 2,000 mls @ 4,000 mls/hr IP 0600, 1200 [facility] Last Admin: 10/02/16 15:14 Dose: 4,000 mls/hr Peritoneal Dialysis Solution (Dianeal 2.5%) 2,500 mls @ 5,000 mls/hr IP 1800 [facility] Last Admin: 10/01/16 17:35 Dose: Not Given Metoprolol Succinate (Toprol Xl -) 25 mg PO DAILY [facility] Last Admin: 10/02/16 09:18 Dose: 25 mg Mupirocin (Bactroban 2% Cream -) 1 applic TP TID [facility] Last Admin: 10/02/16 15:17 Dose: 1 applic Potassium Chloride (K-Dur -) 40 meq PO DAILY [facility] Last Admin: 10/02/16 15:14 Dose: 40 meq Sevelamer Carbonate (Renvela -) 2,400 mg PO TIDCM [facility] Last Admin: 10/02/16 12:23 Dose: 2,400 mg Last Vital Signs Temp Pulse Resp BP Pulse Ox 98.3 F 118 H 20 119/74 98 10/02/16 15:54 10/02/16 15:54 10/02/16 15:54 10/02/16 15:54 10/02/16 09:00 Gen: NAD, Awake and Alert HEENT: NC/AT, MMM, No JVD CVS: RRR, No audible rub Lungs: CTA Abd: Soft, + distension,No tenderness Ext: No edema, clubbing, cyanosis Neuro: AAOX3, no focal defects Abnormal Lab Results 10/02/16 10/02/16 05:35 05:35 RBC 2.91 L Hgb 9.9 L Hct 28.1 L MCV 96.9 H Plt Count 97 L Monocytes % 25.0 H Sodium 135 L Potassium 3.1 L Chloride 92 L BUN 54 H Creatinine 16.1 H* AST 10 L D ALT 9 L D Total Protein 5.6 L Albumin 2.5 L A/P 64 y/o Gentleman with PMhx of ESRD on PD x 2 years and was on HD before, Hx of Myeloma who presented to the ED with complaints of intermittent chest pain. PAtient is s/p autologous SCT for myeloma at [facility] Has been noncompliant with follow up Has not gone there since 2011 Very reluctant to start any treatment recheck skeletal survey/protein studies rediscussed need for close f/u, need for myeloma treatment mild thrombocytopenia --check blood cultures
[2016-10-02] MEDS: PANTOPRAZOLE 40 MG TABLET (FP) PO SCH (18:52)
[2016-10-02] MEDS: PERITONEAL DIALYSIS 2.5% SOLN 2,500 ML IP SCH (18:53)
[2016-10-03 06:29] VITALS: TEMP 98
--- NOTE | 2016-10-03 07:13 | PN ---
Progress Note (short form) - Note Progress Note: Chief Complaint: Events noted, notes reviewed, denies any further chest pain, denies any dyspnea History of Present Illness: Seen and examined on telemetry. Events noted, notes reviewed, denies any further chest pain, denies any dyspnea Echocardiography revealed normal LV systolic function, trace MR, mild TR and evidence of pericardial effusion - Current Medication List Current Medications Aspirin (Ecotrin -) 81 mg PO DAILY [facility] Last Admin: 10/03/16 09:22 Dose: 81 mg Chlorhexidine Gluconate (Hibiclens For Decolonization -) 1 applic TP HS [facility] Last Admin: 10/01/16 21:47 Dose: Not Given Peritoneal Dialysis Solution (Dianeal 1.5%) 2,000 mls @ 4,000 mls/hr IP 0600, 1200 [facility] Last Admin: 10/02/16 15:14 Dose: 4,000 mls/hr Peritoneal Dialysis Solution (Dianeal 2.5%) 2,500 mls @ 5,000 mls/hr IP 1800 [facility] Last Admin: 10/02/16 18:53 Dose: 5,000 mls/hr Metoprolol Succinate (Toprol Xl -) 25 mg PO DAILY [facility] Last Admin: 10/03/16 09:22 Dose: 25 mg Mupirocin (Bactroban 2% Cream -) 1 applic TP TID [facility] Last Admin: 10/03/16 09:22 Dose: Not Given Pantoprazole Sodium (Protonix -) 40 mg PO DAILY [facility] Last Admin: 10/03/16 09:22 Dose: 40 mg Sevelamer Carbonate (Renvela -) 2,400 mg PO TIDCM [facility] Last Admin: 10/03/16 08:44 Dose: 2,400 mg Review of Systems Cardiovascular: As noted above Respiratory: denies: denies: Cough or Sputum Production Gastrointestinal: denies: Nausea, Vomiting, Diarrhea, Constipation or Abdominal Discomfort Musculoskeletal: No Symptoms Reported Endocrine: No Symptoms Reported - Objective Vital Signs: Last Vital Signs Temp Pulse Resp BP Pulse Ox 98 F 80 20 120/70 98 10/03/16 06:28 10/03/16 06:28 10/03/16 06:28 10/03/16 06:28 10/02/16 21:00 Neck: Supple Negative JVD No Bruit Cardiovascular: S1 S2 Regular Rate and Rhythm Grade 2/6 Systolic Ejection Murmur Respiratory: Clear to A&P Bilaterally Gastrointestinal: Soft Benign Normal Bowel Sounds Ext: No Edema Labs: CBC, BMP 10/03/16 05:35 10/03/16 05:35 Assessment/Plan ASSESSMENT: 1. Chest pain syndrome and EKG findings consistent with acute pericarditis 2. ESRD on PD 3. Anemia and thrombocytopenia 4. History of multiple myeloma post autologous stem cell transplant 5. Hypertension PLAN: 1. Continue peritoneal dialysis as per renal recommendation 2. Continue Toprol XL 3. Continue ASA 4. Can be D/C from cardiovascular point of view and F/U in the office in 2-3 weeks for further evaluation including a repeat echocardiography to assess pericardial space Above was reviewed in detail with the patient Gagan Graham MD
[2016-10-03 07:22] LABS: MCH 32.5 pg (25.7-33.7); MCHC 33.6 g/dl (32.0-35.9); MEAN CELL VOLUME 96.7 fl (80-96); MEAN PLT VOLUME 9.5 fl (7.5-11.1); PLATELET COUNT 105 K/MM3 (134-434); RDW 15.5 % (11.9-15.9); WHITE BLOOD COUNT 5.6 K/mm3 (4.0-10.0)
[2016-10-03 07:42] LABS: ALBUMIN 2.5 g/dl (3.4-5.0); BILIRUBIN,TOTAL 0.4 mg/dL (0.2-1.0); CALCIUM 8.4 mg/dL (8.5-10.1); TOT PROT 5.6 g/dl (6.4-8.2)
[2016-10-03 07:50] LABS: THYROID STIMULATING HORMONE 4.51 uIU/ml (0.358-3.74)
[2016-10-03] MEDS: SEVELAMER CARBONATE 800 MG TAB (FP) PO SCH (08:44)
--- NOTE | 2016-10-03 09:04 | PN ---
Progress Note, Physician Chief Complaint: Pt sitting in the bed No chest pain now,no sob cardiology cleared for discharge ECHO report noted pt refused bone bone survey as per pt does not wants to do w/u for multiple myeloma pt wants to go home - Current Medication List Current Medications: Active Medications Aspirin (Ecotrin -) 81 mg PO DAILY [facility] Last Admin: 10/02/16 09:18 Dose: 81 mg Chlorhexidine Gluconate (Hibiclens For Decolonization -) 1 applic TP HS [facility] Last Admin: 10/01/16 21:47 Dose: Not Given Peritoneal Dialysis Solution (Dianeal 1.5%) 2,000 mls @ 4,000 mls/hr IP 0600, 1200 [facility] Last Admin: 10/02/16 15:14 Dose: 4,000 mls/hr Peritoneal Dialysis Solution (Dianeal 2.5%) 2,500 mls @ 5,000 mls/hr IP 1800 [facility] Last Admin: 10/02/16 18:53 Dose: 5,000 mls/hr Metoprolol Succinate (Toprol Xl -) 25 mg PO DAILY [facility] Last Admin: 10/02/16 09:18 Dose: 25 mg Mupirocin (Bactroban 2% Cream -) 1 applic TP TID [facility] Last Admin: 10/02/16 15:17 Dose: 1 applic Pantoprazole Sodium (Protonix -) 40 mg PO DAILY [facility] Last Admin: 10/02/16 18:52 Dose: 40 mg Potassium Chloride (K-Dur -) 40 meq PO DAILY [facility] Last Admin: 10/02/16 15:14 Dose: 40 meq Sevelamer Carbonate (Renvela -) 2,400 mg PO TIDCM [facility] Last Admin: 10/03/16 08:44 Dose: 2,400 mg - Objective Vital Signs: Vital Signs Temperature 98 F 10/03/16 06:28 Pulse Rate 80 10/03/16 06:28 Respiratory Rate 20 10/03/16 06:28 Blood Pressure 120/70 10/03/16 06:28 O2 Sat by Pulse Oximetry (%) 98 10/02/16 21:00 Constitutional: Yes: No Distress Eyes: Yes: Conjunctiva Clear HENT: Yes: Atraumatic, Normocephalic Neck: Yes: Supple, Trachea Midline Cardiovascular: Yes: Regular Rate and Rhythm Respiratory: Yes: Regular, CTA Bilaterally Gastrointestinal: Yes: Normal Bowel Sounds, Soft Musculoskeletal: Yes: WNL Extremities: Yes: WNL Edema: No Peripheral Pulses WNL: Yes Neurological: Yes: WNL, Alert, Oriented Psychiatric: Yes: Alert, Oriented Labs: CBC, BMP 10/03/16 05:35 10/03/16 05:35 INR, PTT INR 1.38 (0.82-1.09) H 09/29/16 19:40 Assessment/Plan Chest pain r/o ACS pericarditis EsRd on dialysis Multiple myeloma in remission PLAN Cardiology cleared for surgery Continue home meds pt refused skeletal survey and further w/u for multiple myeloma pt wants to go home d/c home
[2016-10-03] MEDS: ASPIRIN COATED 81 MG TABLET.EC PO SCH (09:22)
[2016-10-03] MEDS: MUPIROCIN CA 2% TOPICAL CREAM 15 GM TUBE TP SCH (09:22)
[2016-10-03] MEDS: PANTOPRAZOLE 40 MG TABLET (FP) PO SCH (09:22)
[2016-10-03] MEDS: METOPROLOL SUCCINATE 25 MG TAB.SR.24H (FP) PO SCH (09:22)
[2016-10-03 09:55] VITALS: BP 120/80; PULSE 84
[2016-10-03 10:03] LABS: CREATININE 15.9 mg/dL (0.7-1.3)
[2016-10-03 12:11] LABS: PLATELET ESTIMATE DECREASED (NORMAL)
--- NOTE | 2016-10-03 15:14 | PN ---
Progress Note (short form) - Note Progress Note: Renal Follow up for ESRD on PD Pt seen and examined at the bedside no acute complaints for discharge today Vital Signs Temperature 98 F 10/03/16 09:00 Pulse Rate 84 10/03/16 09:00 Respiratory Rate 20 10/03/16 09:00 Blood Pressure 120/80 10/03/16 09:00 O2 Sat by Pulse Oximetry (%) 98 10/03/16 09:00 Intake & Output 09/30/16 10/01/16 10/02/16 10/03/16 23:59 23:59 23:59 23:59 Intake Total 580 690 210 Output Total 1200 Balance 580 690 -990 Weight 140 lb Gen: NAD, Awake and Alert HEENT: NC/AT, MMM, No JVD CVS: RRR, No audible rub Lungs: CTA Abd: Soft, + distension,No tenderness Ext: No edema, clubbing, cyanosis CBC, BMP 10/03/16 05:35 10/03/16 05:35 A/P 64 /o Gentleman with PMhx of ESRD on PD x 2 years and was on HD before, Hx of Myloma who presented to the ED with complaints of intermittent chest pain. #Chest pain with suspected pericarditis ECHO showed no effusions chest pain now resolved to have repeat ECHO done as outpatient #ESRD on PD Continue CAPD To follow with dialysis unit as outpatient #Anemia Trend CBC Will continue GALINA as per schedule #Renal Osteodystrphy Continue phos binder Thank you Will follow Hesham Hughes DO
[2016-10-05 06:06] LABS: HEMATOCRIT 29.2 % (37.5-51.0)
[2016-10-05 15:40] LABS: FREE T4 1.24 ng/dl (0.76-1.16)
== END 2016-10-03 11:22 | disposition home or self-care (01) | DRG 314 ==
LOC: JER 19:13 → JERBED 22:12 → J4W 09-30 00:23
PROVIDERS: ADMIT Family Medicine; ATTEND Family Medicine
DX: I31.9 Disease of pericardium, unspecified (principal); N18.6 End stage renal disease; I12.0 Hypertensive chronic kidney disease with stage 5 chronic kidney disease or end stage renal disease; C90.01 Multiple myeloma in remission; D64.9 Anemia, unspecified; D69.6 Thrombocytopenia, unspecified; E87.6 Hypokalemia
CPT/HCPCS: 36415; 71010-TC; 80053; 82550; 82607; 82747; 83735; 83883; 84100; 84439; 84443; 84484; 85014; 85025; 85027; 85610; 86850; 86900; 86901; 87040; 93005; 93010; 93306-TC; 99285-25; J0885

== ENCOUNTER 2017-06-18 11:07 | Day surgery (SDC) | payer OTHER ==
[2017-06-15 10:28] VITALS: BMI 22.6
[2017-06-18] MEDS ORDERED: SUCCINYLCHOLINE CHLORIDE 200 MG/10 ML VIAL ONE (14:44)
[2017-06-18] MEDS ORDERED: MIDAZOLAM HCL 2 MG/2 ML SINGLE DOSE VIAL ONE (14:44)
--- NOTE | 2017-06-18 14:54 | HP ---
Satellite [facility] - Chief Complaint History of Present Illness: 66 yearold man ESRD on peritoneal dialysis who developed infection around catheter exit site. No peritonitis. He has a functioning AV fistula for dialysis. - Past Medical History Allergies/Adverse Reactions: Allergies Allergy/AdvReac Type Severity Reaction Status Date / Time No Known Allergies Allergy Verified 06/18/17 12:36 Cardiovascular: Yes: HTN Renal/: Yes: Renal Failure, Hemodialysis, Other (Peritoneal dialysis) Heme/Onc: Yes: Other (Multiple myeloma) - Current Medications Current Medications: Home Medications Medication Instructions Recorded Sevelamer Carbonate [Renvela -] 2,400 mg PO TID 08/08/13 Metoprolol Succinate [Toprol XL -] 25 mg PO DAILY #30 10/03/16 Satellite Physical Exam - Physical Examination Vital Signs: Vital Signs Period Temp Pulse Resp BP Sys/Posada Pulse Ox Last 24 Hr 98.1 F 65 16 146/87 100 General Appearance: Alert & Oriented x3 ENT: Clear Lung: Clear to auscultation Heart: Regular rate & rhythm Abdomen: Soft, Other (LLQ dialysis catheter with granuloma at exit site) Satellite Impression/Plan - Impression/Plan Impression: Complication of PD catheter. Operative Procedure: Removal and replacement of PD catheter. Date to be Performed: 06/18/17
[2017-06-18] MEDS ORDERED: PROPOFOL 20 ML ONE ×3 (14:57→16:06)
[2017-06-18] MEDS ORDERED: METOPROLOL TARTRATE 5 MG/5 ML VIAL ONE (14:59)
[2017-06-18] MEDS ORDERED: LIDOCAINE HCL 2% JELLY (5 ML/TUBE) ONE (14:59)
[2017-06-18] MEDS ORDERED: ETOMIDATE 20 MG/10 ML AMPUL IVPUSH ONE (14:59)
[2017-06-18] MEDS ORDERED: GLYCOPYRROLATE 0.2 MG/1 ML VIAL ONE (15:32)
[2017-06-18] MEDS ORDERED: ePHEDrine SULFATE 50 MG/1 ML AMPULE ONE (15:41)
[2017-06-18] MEDS ORDERED: BUPIVACAINE HCL/PF 0.5% (5MG/ML) 10 ML VIAL IJ ONE (15:45)
[2017-06-18] MEDS ORDERED: BACITRACIN 15 GM TUBE TOPICAL OINTMENT ONE (16:31)
--- NOTE | 2017-06-18 17:05 | OP ---
Operative Note - Note: Operative Date: 06/18/17 Pre-Operative Diagnosis: Malfunction of peritoneal dialysis catheter Operation: Laparoscopic placement of Peritoneal dialysis catheter. Removal of peritoneal dialysis catheter Findings: Old catheter in LLQ with exit site infection. Implants: [place] neck Tenckhoff catheter Post-Operative Diagnosis: Same as Pre-op Surgeon: Cholo Joseph Anesthesiologist/JANITORIAL MAINTENANCE WORKER: Harley Foss Anesthesia: General Specimens Removed: Old PD catheter
[2017-06-18] MEDS ORDERED: ACETAMINOPHEN 325 MG TABLET (FP) PO PRN ×2 (17:15→17:16)
[2017-06-18] MEDS ORDERED: oxyCODONE HCL 5 MG TABLET PO PRN ×3 (17:15→17:42)
[2017-06-18] MEDS ORDERED: ONDANSETRON 4 MG/2 ML VIAL IVPUSH PRN (17:42)
[2017-06-18 19:04] VITALS: BP 146/88; PULSE 70
[2017-06-18 19:33] VITALS: TEMP 97.5
--- NOTE | 2017-06-20 15:39 | PATH ---
Surgical Pathology Report Patient Name: MELIA WOODY Med. Rec. #: [id number] /Age/Gender: 1950 (Age: 66) / M Account: [id number] Location: [facility] SURGICAL Taken: 06/18/2017 Received: 06/19/2017 Reported: 06/20/2017 Physicians: Cholo Joseph M.D. Specimen(s) Received REMOVED CATHETER Clinical History End stage renal disease Final Diagnosis PERITONEAL DIALYSIS CATHETER, REMOVAL: PERITONEAL DIALYSIS CATHETER. MACROSCOPIC DIAGNOSIS. Electronically Signed Kiki Calhoun M.D. Gross Description Received fresh labeled "removed catheter," are 2 portions of tubing measuring 21.0 and 23.5 cm in length. The longer portion displays an attached henson metallic portion of hardware. No sections are submitted, gross only. 06/19/201706/19/2017
== END 2017-06-18 19:05 | disposition home or self-care (01) ==
LOC: JASU-SURG 11:07
PROVIDERS: ATTEND Surgery
PROC: 0WWG43Z Revision of Infusion Device in Peritoneal Cavity, Percutaneous Endoscopic Approach (ICD-10-PCS; principal; 2017-06-18 14:00)
DX: T85.611A Breakdown (mechanical) of intraperitoneal dialysis catheter, initial encounter (principal); I12.0 Hypertensive chronic kidney disease with stage 5 chronic kidney disease or end stage renal disease; N18.6 End stage renal disease; Z99.2 Dependence on renal dialysis
CPT/HCPCS: 36415; 84132; 88300-TC

== ENCOUNTER 2017-07-04 16:32 | Emergency (ER) | payer OTHER ==
[2017-07-04] MEDS ORDERED: ONDANSETRON *ODT* 4 MG TABLET SL ONE (16:52)
[2017-07-04 16:54] VITALS: BMI 22.4
--- NOTE | 2017-07-04 16:55 | PDOC ---
Rapid Medical Evaluation Time Seen by Provider: 07/04/17 16:50 Medical Evaluation: Allergies Allergy/AdvReac Type Severity Reaction Status Date / Time No Known Allergies Allergy Verified 06/18/17 12:36 07/04/17 16:50 I have performed a brief in person evaluation of this patient. The patient presents with chief complaint of : high blood pressure and vomiting today after dialysis denies headache . Pt states watery stool last night. no abd pain or fever. Pertinent PE findings: no acute distress 195/84 I have ordered the following: labs, zofran The patient will proceed to the ER for further evaluation. 07/04/17 16:54
[2017-07-04 17:16] LABS: BASO % 0.4 % (0-2.0); EOS % 1.3 % (0-4.5); MCH 32.1 pg (25.7-33.7); MEAN CELL VOLUME 97.3 fl (80-96); MEAN PLT VOLUME 9.1 fl (7.5-11.1); NEUT % 75.7 % (42.8-82.8); PLATELET COUNT 103 K/MM3 (134-434); RDW 15.7 % (11.9-15.9); WHITE BLOOD COUNT 7.8 K/mm3 (4.0-10.0)
[2017-07-04 17:41] LABS: ALBUMIN 3.3 g/dl (3.4-5.0); AMYLASE 124 U/L (25-115); ANION GAP 7 (8-16); BILIRUBIN,TOTAL 0.5 mg/dL (0.2-1.0); CALCIUM 8.7 mg/dL (8.5-10.1); CO2 30 mmol/L (21-32); CREATININE 6.9 mg/dL (0.7-1.3); GLUCOSE,RANDOM 93 mg/dL (74-106); SGOT/AST 14 U/L (15-37); SGPT/ALT 14 U/L (12-78); TOT PROT 6.9 g/dl (6.4-8.2)
[2017-07-04 17:42] LABS: ALK PHOS 102 U/L (45-117)
[2017-07-04] MEDS ORDERED: ONDANSETRON *ODT* 4 MG TABLET ONE (17:45)
[2017-07-04 18:18] LABS: MCH 31.9 pg (25.7-33.7); MCHC 32.7 g/dl (32.0-35.9); MEAN CELL VOLUME 97.4 fl (80-96); MEAN PLT VOLUME 9.3 fl (7.5-11.1); PLATELET COUNT 101 K/MM3 (134-434); WHITE BLOOD COUNT 8.8 K/mm3 (4.0-10.0)
--- NOTE | 2017-07-04 18:25 | PDOC ---
Attending Attestation - Medical Decision Making 8:56pm Call was placed to Dr. Marroquin, parks and recreation worker physician for Dr. Coronado. Case was discussed. Documentation prepared by Kerry Wellington, acting as medical biller for Katerina Su MD. <Kerry Wellington - Last Filed: 07/04/17 21:00> - Resident Resident Name: Branden Aragon - ED Attending Attestation I have performed the following: I have examined & evaluated the patient, The case was reviewed & discussed with the resident, I agree w/resident's findings & plan, Exceptions are as noted - HPI HPI: 07/04/17 18:35 66-year-old male with a history of end-stage renal disease secondary to multiple myeloma which was treated many years ago was previously on peritoneal dialysis until the end of last month at which time the tube was taken out because it was leaking. Subsequently he has been getting hemodialysis previously Sunday, switch to Sunday this week [facility] left upper extremity AV fistula. Patient states that he has not taken any blood pressure medications since he was switched to peritoneal dialysis he previously had been on metoprolol 25 mg daily. He is denying any chest pain no shortness of breath no abdominal pain did have 2 episodes of emesis today. At dialysis his blood pressure was elevated which is why he was sent to the ED for evaluation otherwise patient has currently no complaints denies vertigo denies headache or fever or chills no cough - Physicial Exam PE: 07/04/17 18:37 Awake alert no acute distress heart is regular without any murmurs rubs or gallops abdomen is soft and nontender. Lungs are clear bilaterally except for faint crackles at bases bilaterally normal respiratory effort. No wheezing appreciated. Skin is warm dry no rash left upper extremity fistula is clean dry and intact with good really bilateral lower extremities are without edema warm and well perfused. - Medical Decision Making 07/04/17 18:38 66 year-old male currently on hemodialysis temporarily pending peritoneal dialysis catheter placement with an elevated blood pressure after dialysis relatively symptomatic. Exam is unremarkable differential includes end organ damage. abnormality patient's abdomen is nontender we'll obtain labs EKG chest x -ray antiemetics pending workup patient will possibly be discharge home with close follow-up 07/04/17 21:[address] Kim who was covering for would like the patient started on amlodipine 5 mg daily will see the patient within the next 48 hours for repeat blood pressure check patient is tolerating by mouth and feeling better discharged home labs unremarkable chest x-ray negative <Katerina Su - Last Filed: 07/04/17 21:03> Heart Score/ECG Review #1 General ECG Interpretation: Sinus Rhythm, Normal Rate (84), Normal Intervals, No acute ischemic changes Compared to previous ECG there are: No significant change 07/04/17 18:25 comparison 09/2016 - ECG Intrepretation Rhythm: Regular Rhythm - [place]: Left [place] Deviation <Katerina Su - Last Filed: 07/04/17 21:03>
--- NOTE | 2017-07-04 18:36 | PDOC ---
History of Present Illness - General Chief Complaint: Blood Pressure Problem Stated Complaint: BLOOD PRESSURE Time Seen by Provider: 07/04/17 16:50 History Source: Patient Exam Limitations: No Limitations - History of Present Illness Initial Comments: 07/04/17 18:16 Patient is a 66M with history of multiple myeloma, and ESRD on MWF hemodialysis here today complaining of high blood pressure at home. He states that his systolic blood pressure was in the 170s/180s at home so he came in to the ED. He is also complaining of associated nausea, vomiting and diarrhea. He reports one episode of vomiting after dialysis, and diarrhea over the past week (about 1 -2 small episodes per day). Patient denies chest pain, shortness of breath, headache, changes in vision, shortness of breath, leg swelling and decreased exercise tolerance. He reports that his blood pressure has been elevated when on hemodialysis, but improved when he was on peritoneal dialysis. He was taken off peritoneal dialysis due to leaks around the tube. Denies fevers and chills. Past History - Past Medical History Allergies/Adverse Reactions: Allergies Allergy/AdvReac Type Severity Reaction Status Date / Time No Known Allergies Allergy Verified 07/04/17 16:54 Home Medications: Ambulatory Orders Sevelamer Carbonate [Renvela -] 2,400 mg PO TID 08/08/13 Metoprolol Succinate [Toprol XL -] 25 mg PO DAILY #30 10/03/16 Anemia: Yes Asthma: No Cancer: Yes (multiple myeloma) CVA: No COPD: No CHF: No Dementia: No Diabetes: No Dialysis: Yes (M-W-F) GI Disorders: No Disorders: No HTN: Yes Liver Disease: No Seizures: No Thyroid Disease: No - Surgical History Abdominal Surgery: No Appendectomy: No Cardiac Surgery: No Cholecystectomy: No Gastric Stapling: No GI Surgery: No Lung Surgery: No Neurologic Surgery: No Orthopedic Surgery: Yes (right shoulder) - Immunization History Td Vaccination: Yes Immunization Up to Date: Yes - Suicide/Smoking/Psychosocial Hx Smoking Status: No Smoking History: Never smoked Have you smoked in the past 12 months: No Number of Cigarettes Smoked Daily: 0 Hx Alcohol Use: No Drug/Substance Use Hx: No Substance Use Type: None Hx Substance Use Treatment: No Review of Systems - Review of Systems Comments:: 07/04/17 18:36 GENERAL/CONSTITUTIONAL: No fever or chills. No weakness. HEAD, EYES, EARS, NOSE AND THROAT: No change in vision. No sore throat. CARDIOVASCULAR: No chest pain or shortness of breath RESPIRATORY: No cough, wheezing, or hemoptysis. GASTROINTESTINAL: Positive for nausea, vomiting and diarrhea. GENITOURINARY: No dysuria, frequency, or change in urination. SKIN: No rash NEUROLOGIC: No headache, vertigo, loss of consciousness, or change in strength/ sensation. ENDOCRINE: No increased thirst. No abnormal weight change *Physical Exam - Vital Signs Last Vital Signs Temp Pulse Resp BP Pulse Ox 98.0 F 87 20 195/84 97 07/04/17 16:49 07/04/17 16:49 07/04/17 16:49 07/04/17 16:49 07/04/17 16:49 - Physical Exam Comments: 07/04/17 18:39 GENERAL: Awake, alert, and fully oriented, in no acute distress HEAD: No signs of trauma, normocephalic, atraumatic EYES: PERRLA, EOMI, sclera anicteric, conjunctiva clear ENT: Auricles normal inspection, hearing grossly normal, nares patent, oropharynx clear without exudates. Moist mucosa NECK: Normal ROM, supple, no lymphadenopathy, JVD, or masses LUNGS: No distress, speaks full sentences, soft crackles at the bases HEART: Regular rate and rhythm, normal S1 and S2, no murmurs, rubs or gallops, peripheral pulses normal and equal bilaterally. ABDOMEN: Soft, nontender, normoactive bowel sounds. No guarding, no rebound. No masses EXTREMITIES: Normal inspection, Normal range of motion, no edema. No clubbing or cyanosis. NEUROLOGICAL: Cranial nerves II through XII grossly intact. Normal speech, no focal sensorimotor deficits ED Treatment Course - LABORATORY CBC & Chemistry Diagram: 07/04/17 18:00 07/04/17 17:00 - ADDITIONAL ORDERS Additional order review: Laboratory Results 07/04/17 17:00 Sodium 136 Potassium 4.6 Chloride 99 Carbon Dioxide 30 Anion Gap 7 L BUN 16 D Creatinine 6.9 H D Creat Clearance w eGFR 8.05 Random Glucose 93 Calcium 8.7 Total Bilirubin 0.5 AST 14 L D ALT 14 Alkaline Phosphatase 102 D Total Protein 6.9 Albumin 3.3 L Total Amylase 124 H Lipase 291 07/04/17 17:00 RBC 4.12 MCV 97.3 H MCHC 33.0 RDW 15.7 MPV 9.1 Neutrophils % 75.7 D Lymphocytes % 9.4 D Monocytes % 13.2 H Eosinophils % 1.3 Basophils % 0.4 - RADIOLOGY Radiology Studies Ordered: Category Date Time Status CXRPORT [CHEST X-RAY PORTABLE*] [RAD] Stat Radiology 07/04/17 17:56 Ordered - Medications Given in the ED: ED Medications Discontinued Medications Generic Name Dose Route Start Last Admin Trade Name Rk PRN Reason Stop Dose Admin Ondansetron HCl 4 mg 07/04/17 16:52 07/04/17 17:41 Zofran Odt - SL 07/04/17 16:53 4 mg ONCE ONE Administration Medical Decision Making - Medical Decision Making 07/04/17 18:40 Patient is 66M with history of ESRD on hemodialysis here today complaining of high blood pressure at home. Vital signs notable for SBP of 195, otherwise normal. Differential diagnosis includes, but is not limited to, fluid overload, pneumonia, acs, arrhythmia. Will evaluate with cbc, cmp, cxr, ekg, trop, bnp, mag. Patient is asymptomatic, no reason to attempt to lower blood pressure. EKG shows normal sinus rhythm, normal rate, regular, LVH. No st elevations, j point elevation in V3. No ST elevations/depressions. No t wave abnormalities. 07/04/17 19:32 Laboratory Tests 07/04/17 07/04/17 17:00 17:00 WBC 7.8 D Hgb 13.2 D Hct 40.0 Plt Count 103 L D Creatinine 6.9 H D CBC normal, Cr 6.9 down from double digits in past. BNP elevated but not relevant in CKD setting. No prior for comparison. Signed out to Dr Gonzalez, pending PO challenge for discharge. *DC/Admit/Observation/Transfer Diagnosis at time of Disposition: High blood pressure Qualifiers: Hypertension type: unspecified Qualified Code(s): I10 - Essential (primary) hypertension - Referrals Referrals: Tasha Coronado MD [Primary Care Provider] - - Patient Instructions - Post Discharge Activity
[2017-07-04 18:45] LABS: TROPONIN I 0.02 ng/ml (0.00-0.05)
[2017-07-04 18:46] LABS: INR 1.48 (0.82-1.09); PROTHROMBIN TIME (PATIENT) 16.7 SEC (9.98-11.88)
--- NOTE | 2017-07-04 19:29 | PDOC ---
*Physical Exam - Vital Signs Last Vital Signs Temp Pulse Resp BP Pulse Ox 98.0 F 87 20 195/84 97 07/04/17 16:49 07/04/17 16:49 07/04/17 16:49 07/04/17 16:49 07/04/17 16:49 ED Treatment Course - LABORATORY CBC & Chemistry Diagram: 07/04/17 18:00 07/04/17 17:00 - ADDITIONAL ORDERS Additional order review: Laboratory Results 07/04/17 07/04/17 07/04/17 18:00 18:00 18:00 PT with INR 16.70 H INR 1.48 H Sodium Potassium Chloride Carbon Dioxide Anion Gap BUN Creatinine Creat Clearance w eGFR Random Glucose Calcium Total Bilirubin AST ALT Alkaline Phosphatase Creatine Kinase 147 Troponin I 0.02 B-Natriuretic Peptide 47950.83 H Total Protein Albumin Total Amylase Lipase 07/04/17 17:00 PT with INR INR Sodium 136 Potassium 4.6 Chloride 99 Carbon Dioxide 30 Anion Gap 7 L BUN 16 D Creatinine 6.9 H D Creat Clearance w eGFR 8.05 Random Glucose 93 Calcium 8.7 Total Bilirubin 0.5 AST 14 L D ALT 14 Alkaline Phosphatase 102 D Creatine Kinase Troponin I B-Natriuretic Peptide Total Protein 6.9 Albumin 3.3 L Total Amylase 124 H Lipase 291 07/04/17 07/04/17 18:00 17:00 RBC 4.15 4.12 MCV 97.4 H 97.3 H MCHC 32.7 33.0 RDW 16.0 H 15.7 MPV 9.3 9.1 Neutrophils % 75.7 D Lymphocytes % 9.4 D Monocytes % 13.2 H Eosinophils % 1.3 Basophils % 0.4 - Medications Given in the ED: ED Medications Discontinued Medications Generic Name Dose Route Start Last Admin Trade Name Freq PRN Reason Stop Dose Admin Ondansetron HCl 4 mg 07/04/17 16:52 07/04/17 17:41 Zofran Odt - SL 07/04/17 16:53 4 mg ONCE ONE Administration Medical Decision Making - Medical Decision Making 07/04/17 19:27 Patient was signed out to me by Dr. Aragon, day team. 66M with a PMH of HD MWF, Multiple myeloma, presents with asymptomatic HTN, 195 systolic. He was recently switched to HD from peritoneal dialysis and may have had this increase of BP 2/2 to that. Cr 6.9, improved from previous visits. Labs otherwise unremarkable. BNP 50392, increased. CXR negative. No CP, SOB, h/a. Was given zofran. Will PO challenge. Dispo: PO challenge and either home or admit based on results. *DC/Admit/Observation/Transfer Diagnosis at time of Disposition: High blood pressure Qualifiers: Hypertension type: unspecified Qualified Code(s): I10 - Essential (primary) hypertension - Prescriptions Prescriptions: Amlodipine Besylate [Norvasc -] 5 mg PO DAILY #30 tablet - Referrals Referrals: Tasha Coronado MD [Primary Care Provider] - - Patient Instructions Printed Discharge Instructions: Treatments for High Blood Pressure: More Than Just Taking a Pill Additional Instructions: Follow-up with Dr. Russ Holder on within 2-3 days for repeat blood pressure check. Return for any shortness of breath dizziness chest pain persistent vomiting or any concerns. You should start taking amlodipine 5 mg once daily. A prescription has been sent your pharmacy this is for your blood pressure - Post Discharge Activity
[2017-07-04 22:08] VITALS: BP 160/85; PULSE 68; TEMP 98.5
--- NOTE | 2017-07-05 12:45 | EKG ---
Test Reason : Blood Pressure : / mmHG Vent. Rate : 084 BPM Atrial Rate : 084 BPM P-R Int : 174 ms QRS Dur : 068 ms QT Int : 372 ms P-R-T Axes : 056 -06 061 degrees QTc Int : 439 ms NORMAL SINUS RHYTHM POSSIBLE LEFT ATRIAL ENLARGEMENT LEFT VENTRICULAR HYPERTROPHY CANNOT RULE OUT SEPTAL INFARCT (CITED ON OR BEFORE 29-SEP-2016) ABNORMAL ECG WHEN COMPARED WITH ECG OF 30-SEP-2016 08:43, QRS DURATION HAS DECREASED ST NO LONGER ELEVATED IN INFERIOR LEADS ST NO LONGER ELEVATED IN LATERAL LEADS T WAVE INVERSION NO LONGER EVIDENT IN ANTERIOR LEADS Confirmed by DREW COWART MD ([id number]) on 07/05/2017 12:44:57 PM Referred By: Confirmed By:DREW COWART MD
== END 2017-07-04 22:00 | disposition home or self-care (01) ==
LOC: JER 16:32
DX: I10 Essential (primary) hypertension (principal); I12.0 Hypertensive chronic kidney disease with stage 5 chronic kidney disease or end stage renal disease; N18.6 End stage renal disease; Z99.2 Dependence on renal dialysis
CPT/HCPCS: 36415; 71010-TC; 80053; 82150; 82550; 83690; 83880; 84484; 85025; 85027; 85610; 86850; 86900; 86901; 93005; 93010; 99283-25

== ENCOUNTER 2017-09-26 01:12 | Emergency (ER) | payer OTHER ==
[2017-09-26 02:18] VITALS: TEMP 98.6; BMI 21.6
[2017-09-26] MEDS ORDERED: METOPROLOL TARTRATE 5 MG/5 ML VIAL IVPUSH ONE (02:50)
[2017-09-26] MEDS ORDERED: METOPROLOL TARTRATE 5 MG/5 ML VIAL ONE (02:56)
--- NOTE | 2017-09-26 03:00 | PDOC ---
History of Present Illness - General Chief Complaint: Edema Stated Complaint: SWELLING Time Seen by Provider: 09/26/17 02:37 History Source: Patient Exam Limitations: No Limitations - History of Present Illness Initial Comments: CHIEF COMPLAINT: 67 y/o afebrile male with PMH ESRD, H/O HD with left upper extremity fistula, HTN and multiple myeloma (no chemo for several years) c/o left hand and foot swelling and asymptomatic high BP. HISTORY OF PRESENT ILLNESS: The patient states his right hand and left foot started swelling yesterday morning and progressively got worse throughout the day. He states his right hand is now so painful he cannot move it. He also admits he took his BP this evening and it was very high. He denies GARNETT, changes in vision/hearing, cough, neck pain, n/v/d, CP, SOB, abd pain, back pain, numbness/tingling in extremities. Patient has HD M/W/F. PCP : Tasha Coronado Car Painter : Paloma Quinones Executive Casino Host: Gagan Graham MD Vital signs on arrival are notable for BP of 221/105 with O2 sat of 94% on RA. REVIEW OF SYSTEMS: GENERAL/CONSTITUTIONAL: No fever/chills. No weakness. No weight change. HEAD, EYES, EARS, NOSE AND THROAT: No change in vision. No ear pain or discharge. No sore throat. CARDIOVASCULAR: No chest pain or shortness of breath. RESPIRATORY: No cough, wheezing, or hemoptysis. GASTROINTESTINAL: No abd pain, nausea, vomiting, diarrhea. GENITOURINARY: No dysuria, frequency, or change in urination. MUSCULOSKELETAL: +right hand and foot swelling. Right hand and arm pain. No neck or back pain. SKIN: No rash or easy bruising. NEUROLOGIC: No headache, vertigo, loss of consciousness, or loss of sensation. PHYSICAL EXAM: GENERAL: The patient is awake, alert, and fully oriented, in no acute distress. He is pleasant and talkative, otherwise well appearing. HEAD: Normal with no signs of trauma. ENT: Pupils equal, round and reactive to light, extraocular movements intact, sclera anicteric, conjunctiva clear. Neck supple. LUNGS: Clear to auscultation bilaterally. Normal excursion. No respiratory distress or use of accessory muscles. CV: RRR, S1/S2, no MRG. Cap refill < 2 sec. ABDOMEN: Soft, non-distended, non-tender even to deep palpation, no hepatomegaly or splenomegaly, no masses. EXTREMITIES: Non pitting edema to right hand and right foot. Patient is unable to move right arm without pain and is holding it to his body. Right shoulder appears deformed and possibly dislocated. No clavicular tenting. Left upper arm with fistula with palpable thrill NEUROLOGICAL: Normal speech. Gait not assessed in the ER. CN II-XII grossly intact. SKIN: Warm, dry, normal turgor, no rashes or lesions noted. Past History - Past Medical History Allergies/Adverse Reactions: Allergies Allergy/AdvReac Type Severity Reaction Status Date / Time No Known Allergies Allergy Verified 09/26/17 02:14 Home Medications: Ambulatory Orders Sevelamer Carbonate [Renvela -] 2,400 mg PO TID 08/08/13 Metoprolol Succinate [Toprol XL -] 25 mg PO DAILY #30 10/03/16 Amlodipine Besylate [Norvasc -] 5 mg PO DAILY #30 tablet 07/04/17 Anemia: Yes Asthma: No Cancer: Yes (multiple myeloma) CVA: No COPD: No CHF: No Dementia: No Diabetes: No Dialysis: Yes (M-W-F) GI Disorders: No Disorders: No HTN: Yes Liver Disease: No Seizures: No Thyroid Disease: No - Surgical History Abdominal Surgery: No Appendectomy: No Cardiac Surgery: No Cholecystectomy: No Gastric Stapling: No GI Surgery: No Lung Surgery: No Neurologic Surgery: No Orthopedic Surgery: Yes (right shoulder) - Immunization History Td Vaccination: Yes Immunization Up to Date: Yes - Suicide/Smoking/Psychosocial Hx Smoking Status: No Smoking History: Never smoked Have you smoked in the past 12 months: No Number of Cigarettes Smoked Daily: 0 Information on smoking cessation initiated: No Hx Alcohol Use: No Drug/Substance Use Hx: No Substance Use Type: None Hx Substance Use Treatment: No *Physical Exam - Vital Signs Last Vital Signs Temp Pulse Resp BP Pulse Ox 98.6 F 73 14 221/105 94 L 09/26/17 02:14 09/26/17 02:14 09/26/17 02:14 09/26/17 02:14 09/26/17 02:14 Heart Score/ECG Review - ECG Intrepretation Comment:: Twelve-lead EKG was performed and reviewed by Dr. Mirza. There is normal sinus rhythm with a normal rate. The axis is normal. The intervals are normal. There are no ST or T wave abnormalities. Impression: Normal twelve-lead EKG ED Treatment Course - LABORATORY CBC & Chemistry Diagram: 09/26/17 02:45 09/26/17 03:10 - RADIOLOGY Radiology Studies Ordered: Category Date Time Status CHEST PA & LAT [RAD] Stat Radiology 09/26/17 02:45 Ordered Medical Decision Making - Medical Decision Making A/P: 67 y/o male with right hand and foot swelling, asymptomatic HTN and right arm pain. The plan is as follows: 1. Labs 2. EKG 3. CXR 4. Right shoulder xray CXR IMPRESSION: No evidence of acute pathology. Right Shoulder Xray IMPRESSION: No fracture. Possible joint effusion. Dr. Mirza and I reviewed the shoulder xray and believe there may be a dislocation. Will send for CT scan of the shoulder to confirm. CT scan right shoulder IMPRESSION: No fracture or dislocation. 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 Moderate sized joint effusion. Gave patient results. His BP is much improved. Gave him his oxycodone for pain Instructed himi to f/u with his doctor Will discharge so he can make his dialysis appointment today. Instructed him to return to the ER immediately with any worsening or concerning symptoms. *DC/Admit/Observation/Transfer Diagnosis at time of Disposition: Right arm pain Hand swelling Qualifiers: Laterality: right Qualified Code(s): M79.89 - Other specified soft tissue disorders - Discharge Dispostion Disposition: HOME Condition at time of disposition: Good - Referrals Referrals: Tasha Coronado MD [Primary Care Provider] - - Patient Instructions Printed Discharge Instructions: DI for Osteoarthritis, DI for Arm Pain Additional Instructions: Discharge instructions: -Take your prescribed pain medication at home -Go to your dialysis appointment today -Follow up with your doctor -Return to the ER with any worsening or concerning symptoms - Post Discharge Activity
[2017-09-26 03:18] LABS: BASO % 0.4 % (0-2.0); HEMATOCRIT 33.2 % (35.4-49); HEMOGLOBIN 11.4 GM/dL (11.7-16.9); LYMPH % 7.8 % (8-40); MCH 32.6 pg (25.7-33.7); MCHC 34.3 g/dl (32.0-35.9); MEAN CELL VOLUME 95.3 fl (80-96); MEAN PLT VOLUME 8.8 fl (7.5-11.1); MONO % 23.2 % (3.8-10.2); NEUT % 68.6 % (42.8-82.8); PLATELET COUNT 114 K/MM3 (134-434); RBC 3.48 M/mm3 (4.00-5.60); RDW 15.8 % (11.9-15.9); WHITE BLOOD COUNT 10.4 K/mm3 (4.0-10.0)
[2017-09-26 03:31] LABS: INR 1.51 (0.82-1.09); PROTHROMBIN TIME (PATIENT) 17.1 SEC (9.98-11.88)
[2017-09-26 03:33] LABS: ACTIVATED PTT 36.2 SECONDS (26.9-34.4)
[2017-09-26 03:52] LABS: ALBUMIN 4.3 g/dl (3.4-5.0); ALK PHOS 121 U/L (45-117); ANION GAP 14 (8-16); BLOOD UREA NITROGEN 55 mg/dL (7-18); CALCIUM 8.9 mg/dL (8.5-10.1); CHLORIDE 96 mmol/L (98-107); CO2 24 mmol/L (21-32); GLUCOSE,RANDOM 101 mg/dL (74-106); MAGNESIUM 2.2 mg/dL (1.8-2.4); SGOT/AST 19 U/L (15-37); SGPT/ALT 26 U/L (12-78); SODIUM 134 mmol/L (136-145); TOT PROT 7.9 g/dl (6.4-8.2)
[2017-09-26 03:57] LABS: BILIRUBIN,TOTAL 0.6 mg/dL (0.2-1.0)
[2017-09-26 04:11] LABS: CREATININE 12.5 mg/dL (0.7-1.3); POTASSIUM 6.1 mmol/L (3.5-5.1)
[2017-09-26 04:26] LABS: N-TERMINAL BNP 71249.35 pg/ml (5-125)
[2017-09-26 06:20] VITALS: BP 186/82; PULSE 88
[2017-09-26] MEDS ORDERED: oxyCODONE HCL 5 MG TABLET PO ONE (06:24)
[2017-09-26] MEDS ORDERED: oxyCODONE HCL 5 MG TABLET ONE (06:25)
--- NOTE | 2017-09-26 10:47 | EKG ---
Test Reason : Blood Pressure : / mmHG Vent. Rate : 069 BPM Atrial Rate : 069 BPM P-R Int : 174 ms QRS Dur : 084 ms QT Int : 398 ms P-R-T Axes : 060 -08 081 degrees QTc Int : 426 ms NORMAL SINUS RHYTHM POSSIBLE LEFT ATRIAL ENLARGEMENT BORDERLINE ECG WHEN COMPARED WITH ECG OF 04-JUL-2017 18:20, T WAVE AMPLITUDE HAS INCREASED IN LATERAL LEADS Confirmed by KIERRA FERNANDEZ, CHELLY ([id number]) on 09/26/2017 10:47:26 AM Referred By: Confirmed By:CHELLY LOZADA MD
== END 2017-09-26 06:41 | disposition home or self-care (01) ==
LOC: JER 01:12
PROC: 3E033GC Introduction of Other Therapeutic Substance into Peripheral Vein, Percutaneous Approach (ICD-10-PCS; principal; 2017-09-26)
DX: M19.011 Primary osteoarthritis, right shoulder (principal); M79.89 Other specified soft tissue disorders; I12.0 Hypertensive chronic kidney disease with stage 5 chronic kidney disease or end stage renal disease; N18.6 End stage renal disease; N17.8 Other acute kidney failure; Z99.2 Dependence on renal dialysis
CPT/HCPCS: 36415; 71045-TC-FY; 73030-TC-RT-FY; 73200-TC-RT; 80053; 82550; 83735; 83880; 84484; 85025; 85610; 85730; 93005; 93010; 96374; 99283-25

== ENCOUNTER 2018-03-13 08:55 | Day surgery (SDC) | payer OTHER ==
[2018-03-12 14:42] VITALS: BMI 21.3
[2018-03-13] MEDS ORDERED: BUPIVACAINE HCL/PF 0.5% (5MG/ML) 10 ML VIAL ONE (11:36)
[2018-03-13] MEDS ORDERED: oxyCODONE HCL 5 MG TABLET PO PRN ×3 (11:39→13:46)
[2018-03-13] MEDS ORDERED: ONDANSETRON 4 MG/2 ML VIAL IVPUSH PRN (11:39)
[2018-03-13] MEDS ORDERED: PROPOFOL 20 ML ONE (11:43)
[2018-03-13] MEDS ORDERED: ROCURONIUM BROMIDE 50 MG/5 ML VIAL ONE (11:44)
[2018-03-13] MEDS ORDERED: MIDAZOLAM HCL 2 MG/2 ML SINGLE DOSE VIAL ONE (11:44)
[2018-03-13] MEDS ORDERED: SODIUM CHLORIDE 1,000 ML IV SCH (11:45)
[2018-03-13] MEDS ORDERED: ceFAZolin SODIUM 1 GM VIAL ONE (12:03)
[2018-03-13] MEDS ORDERED: BUPIVACAINE HCL/PF (5 MG/ML) 30 ML VIAL IJ ONE (12:10)
[2018-03-13] MEDS ORDERED: ONDANSETRON 4 MG/2 ML VIAL ONE (12:43)
[2018-03-13] MEDS ORDERED: DEXAMETHASONE SOD PHOSPHATE 4 MG/1 ML VIAL ONE (12:43)
[2018-03-13] MEDS ORDERED: GLYCOPYRROLATE 0.2 MG/1 ML VIAL ONE (12:43)
[2018-03-13] MEDS ORDERED: NEOSTIGMINE METHYLSULFATE 0.5 MG/ML - 10 ML MDV ONE (12:44)
--- NOTE | 2018-03-13 12:56 | OP ---
Operative Note - Note: Operative Date: 03/13/18 Pre-Operative Diagnosis: ESRD Operation: Placement peritoneal dialysis catheter. Laparoscopic lysis of adhesions. Findings: Adhesion of omentum to umbilical mesh. Yellow ascites 2500 cc drained Implants: Double cuff Tenskhoff catheter. Post-Operative Diagnosis: Same as Pre-op Surgeon: Cholo Joseph Anesthesiologist/SHIFT SUPERINTENDENT CAUSTIC CRESYLATE: Daxa Walker Anesthesia: General
--- NOTE | 2018-03-13 12:59 | HP ---
[facility] - Chief Complaint History of Present Illness: 67 year old man with ESRD on HD. He had a PD catheter placed but draied ascitic fluid post op and had catheter removed. GI evaluation was done without new diagnosis. He wishes to try t have catheter placed again and resume PD. History Source: Patient, Medical Record Limitations to Obtaining History: No Limitations - Past Medical History Allergies/Adverse Reactions: Allergies Allergy/AdvReac Type Severity Reaction Status Date / Time No Known Allergies Allergy Verified 03/12/18 14:46 Cardiovascular: Yes: HTN Gastrointestinal: Yes: Ascites Renal/: Yes: Renal Failure, Hemodialysis, Other (Peritoneal dialysis) Heme/Onc: Yes: Other (Multiple myeloma) - Current Medications Current Medications: Home Medications Medication Instructions Recorded Sevelamer Carbonate [Renvela -] 2,400 mg PO TID 08/08/13 Amlodipine Besylate [Norvasc -] 5 mg PO DAILY #30 tablet 07/04/17 Metoprolol Succinate [Toprol XL -] 25 mg PO HS 03/13/18 [facility]ellite Physical Exam - Physical Examination Vital Signs: Vital Signs Period Temp Pulse Resp BP Sys/Posada Pulse Ox Last 24 Hr 98.1 F 69 18 153/73 100 General Appearance: Alert & Oriented x3 ENT: Clear Lung: Clear to auscultation Heart: Regular rate & rhythm Abdomen: Other (Distended, soft, non-tender. No hernias) Extremities: No edema, Other (Left AVF with several large aneurysms.) Neurological: Intact [facility] Impression/Plan - Impression/Plan Impression: ESRD on HD. Ascites Operative Procedure: Laparoscopy, placement of PD catheter Date to be Performed: 03/13/18
[2018-03-13] MEDS ORDERED: ACETAMINOPHEN 325 MG TABLET (FP) PO PRN (13:46)
[2018-03-13] MEDS ORDERED: oxyCODONE HCL 5 MG TABLET PO ONE (14:46)
[2018-03-13] MEDS ORDERED: oxyCODONE HCL 5 MG TABLET ONE (14:50)
[2018-03-13 14:58] VITALS: TEMP 97
[2018-03-13 16:48] VITALS: BP 195/87; PULSE 50
--- NOTE | 2018-03-27 13:41 | OP ---
DATE OF OPERATION: 03/13/2018 SURGEON: Cholo Navas MD PROCEDURE: Laparoscopy with lysis of adhesions. Placement of peritoneal dialysis catheter. PREOPERATIVE DIAGNOSIS: End-stage renal disease. POSTOPERATIVE DIAGNOSIS: End-stage renal disease with ascites. ANESTHESIA: General. ANESTHESIOLOGIST: Daxa Walker MD OPERATIVE FINDINGS: There were adhesions of the omentum to the anterior abdominal wall at the umbilicus where there was a hernia mesh. There were approximately 2500 mL of yellow ascites, which was drained from the peritoneal cavity. The liver was not grossly cirrhotic. OPERATIVE PROCEDURE: Following routine patient identification with side and site verification, general anesthesia was induced. The abdomen was prepped with ChloraPrep. Time-out was performed. Then, 0.5% Marcaine was infiltrated in the skin between the umbilicus and xiphoid process, and a 5-mm incision was made. A 5-mm Optiview port was placed under laparoscopic visualization into the peritoneal cavity. Pneumoperitoneum was then established with carbon dioxide to 15 mmHg pressure. Ascitic fluid was aspirated with a total of approximately 2500 mL removed. Adhesions of the omentum to the anterior abdominal wall were divided with the LigaSure device. The remainder of the peritoneal cavity was free of adhesions. An incision was made above and to the left of the umbilicus, and an 8-mm blunt-tipped port was advanced to the underside of the parietal peritoneum. Then, the port was directed towards the pelvis where it entered the peritoneal cavity at the top of the true pelvis. A double-cuff curled swan-neck catheter was then advanced with the maitre d' through the port and deployed into the pelvis. The inner cuff was left just deep to the fascia. The other end of the catheter after removing the port was attached to a curved metal tunneler, which was passed in the subcutaneous plane to exit in the right lower abdominal wall. Then, 1 L of saline was run into the abdominal cavity in gravity in less than 3 minutes. Approximately 1 L of fluid was then drained out by dropping the bag to the floor. The catheter was capped and the Luer Lock Adaptor applied. All ports were removed. The wounds were closed with subcutaneous sutures of 3-0 Vicryl and subcuticular sutures of 4-0 Biosyn. Dermabond glue was applied to the incisions. The catheter was secured to the skin with a Tegaderm and ABD pad to cover. Patient was then extubated and taken to the recovery room in stable condition. CHOLO NAVAS M.D. JOLENE/[id number]
== END 2018-03-13 15:50 | disposition home or self-care (01) ==
LOC: JASU-SURG 08:55
PROVIDERS: ATTEND Surgery
PROC: 0WHG43Z Insertion of Infusion Device into Peritoneal Cavity, Percutaneous Endoscopic Approach (ICD-10-PCS; principal; 2018-03-13 11:00)
DX: I12.0 Hypertensive chronic kidney disease with stage 5 chronic kidney disease or end stage renal disease (principal); N18.6 End stage renal disease; I25.10 Atherosclerotic heart disease of native coronary artery without angina pectoris; B19.10 Unspecified viral hepatitis B without hepatic coma; C90.00 Multiple myeloma not having achieved remission; Z99.2 Dependence on renal dialysis; R18.8 Other ascites
CPT/HCPCS: 36415; 84132; 94760

== ENCOUNTER 2018-04-29 10:03 | Inpatient (IN) | payer OTHER ==
[2018-04-29] MEDS ORDERED: SODIUM CHLORIDE 1,000 ML IV SCH (12:00)
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
[2018-04-29 12:25] LABS: BASO % 0.5 % (0-2.0); EOS % 1.4 % (0-4.5); HEMATOCRIT 35.9 % (35.4-49); HEMOGLOBIN 11.9 GM/dL (11.7-16.9); LYMPH % 15.4 % (8-40); MCH 31.8 pg (25.7-33.7); MEAN CELL VOLUME 96.3 fl (80-96); MEAN PLT VOLUME 8.3 fl (7.5-11.1); MONO % 23.4 % (3.8-10.2); NEUT % 59.3 % (42.8-82.8); PLATELET COUNT 179 K/MM3 (134-434); RBC 3.73 M/mm3 (4.00-5.60); RDW 16.5 % (11.9-15.9); WHITE BLOOD COUNT 6.8 K/mm3 (4.0-10.0)
[2018-04-29 12:38] LABS: INR 1.28 (0.83-1.09); PROTHROMBIN TIME (PATIENT) 15.1 SEC (9.7-13.0)
[2018-04-29 12:46] LABS: CHOLESTEROL 132 mg/dL (50-200); HDL CHOLESTEROL 55 mg/dL (40-60); TRIGLYCERIDES 62 mg/dL (0-150)
[2018-04-29 13:02] LABS: ALBUMIN 2.4 g/dl (3.4-5.0); ALK PHOS 140 U/L (45-117); ANION GAP 9 MMOL/L (8-16); BILIRUBIN,TOTAL 0.5 mg/dL (0.2-1); BLOOD UREA NITROGEN 46 mg/dL (7-18); CALCIUM 8.8 mg/dL (8.5-10.1); CHLORIDE 94 mmol/L (98-107); CO2 30 mmol/L (21-32); GLUCOSE,RANDOM 92 mg/dL (74-106); POTASSIUM 3.7 mmol/L (3.5-5.1); SGOT/AST 17 U/L (15-37); SGPT/ALT 22 U/L (13-61); SODIUM 133 mmol/L (136-145); TOT PROT 6.1 g/dl (6.4-8.2)
[2018-04-29 13:04] LABS: CREATININE 12.7 mg/dL (0.55-1.3)
[2018-04-29 13:24] LABS: ANISOCYTOSIS 0; MACROCYTOSIS 0; PLATELET ESTIMATE NORMAL
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
[2018-04-29 20:43] VITALS: BMI 21.7
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
[2018-04-29] MEDS: CARVEDILOL 6.25 MG TABLET (FP) PO SCH (21:33)
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
[2018-04-30 06:49] LABS: BASO % 0.5 % (0-2.0); HEMATOCRIT 29.9 % (35.4-49); HEMOGLOBIN 9.9 GM/dL (11.7-16.9); LYMPH % 19.2 % (8-40); MCH 31.6 pg (25.7-33.7); MCHC 33.2 g/dl (32.0-35.9); MEAN CELL VOLUME 95.1 fl (80-96); MEAN PLT VOLUME 8.4 fl (7.5-11.1); MONO % 26.7 % (3.8-10.2); NEUT % 51.6 % (42.8-82.8); PLATELET COUNT 147 K/MM3 (134-434); RBC 3.14 M/mm3 (4.00-5.60); RDW 16.3 % (11.9-15.9); WHITE BLOOD COUNT 7.2 K/mm3 (4.0-10.0)
[2018-04-30 07:35] LABS: ALBUMIN 1.9 g/dl (3.4-5.0); ALK PHOS 108 U/L (45-117); ANION GAP 9 MMOL/L (8-16); BILIRUBIN,TOTAL 0.5 mg/dL (0.2-1); BLOOD UREA NITROGEN 53 mg/dL (7-18); CALCIUM 7.6 mg/dL (8.5-10.1); CHLORIDE 95 mmol/L (98-107); CHOLESTEROL 112 mg/dL (50-200); CO2 32 mmol/L (21-32); GLUCOSE,RANDOM 90 mg/dL (74-106); HDL CHOLESTEROL 45 mg/dL (40-60); MAGNESIUM 2.2 mg/dL (1.8-2.4); PHOSPHOROUS 3.8 mg/dL (2.5-4.9); POTASSIUM 4.1 mmol/L (3.5-5.1); SGOT/AST 13 U/L (15-37); SGPT/ALT 19 U/L (13-61); SODIUM 135 mmol/L (136-145); TRIGLYCERIDES 50 mg/dL (0-150)
[2018-04-30 07:57] LABS: CREATININE 15.5 mg/dL (0.55-1.3)
[2018-04-30] MEDS ORDERED: PT OWN MED DRAWER 7, Y5N ONE (09:18)
[2018-04-30] MEDS: CARVEDILOL 6.25 MG TABLET (FP) PO SCH (09:29)
[2018-04-30] MEDS: SEVELAMER CARBONATE 2.4 GM POWDER PACKET PO SCH ×2 (09:29→11:10)
--- NOTE | 2018-04-30 09:41 | PN ---
Progress Note, Physician History of Present Illness: Pt lying in bed,alert,oriented,awake,vitals NL,afebrile No weakness in the leg now pt feels better Neurology note appreciated,Impression noted peripheral neuropathy ? uremic / syncope vit B12 and TSH level NL Pt is on PD H/o chronic anemia I - Current Medication List Current Medications: Active Medications Aspirin (Asa -) 81 mg PO DAILY [facility] Last Admin: 04/30/18 09:29 Dose: 81 mg Carvedilol (Coreg -) 6.25 mg PO BID [facility] Last Admin: 04/30/18 09:29 Dose: 6.25 mg Sevelamer Carbonate (Renvela Powder Packet -) 2.4 gm PO TIDCM [facility] Last Admin: 04/30/18: Dose: 2.4 gm Valsartan (Diovan -) 80 mg PO DAILY [facility] Last Admin: 04/30/18 09:29 Dose: 80 mg - Objective Vital Signs: Vital Signs Temperature 98.3 F 04/30/18 02:00 Pulse Rate 84 04/30/18 05:15 Respiratory Rate 20 04/30/18 02:00 Blood Pressure 156/69 04/30/18 05:15 O2 Sat by Pulse Oximetry (%) 98 04/29/18 20:35 Constitutional: Yes: No Distress Eyes: Yes: Conjunctiva Clear HENT: Yes: Atraumatic Neck: Yes: Supple, Trachea Midline Cardiovascular: Yes: Regular Rate and Rhythm Respiratory: Yes: Regular, CTA Bilaterally Gastrointestinal: Yes: Normal Bowel Sounds, Soft, Other (peritoneal dialysis catheter in place) Musculoskeletal: Yes: WNL Extremities: Yes: WNL Edema: No Peripheral Pulses WNL: Yes Neurological: Yes: WNL, Alert, Oriented, Cran Nerves II-XII Intact ...Motor Strength: WNL Psychiatric: Yes: WNL, Alert Labs: CBC, BMP 04/30/18 05:30 04/30/18 05:30 INR, PTT INR 1.28 (0.83-1.09) H 04/29/18 12:07 Laboratory Results - last 24 hr 04/29/18 04/29/18 04/29/18 12:07 12:07 12:07 WBC 6.8 RBC 3.73 L Hgb 11.9 Hct 35.9 MCV 96.3 H MCH 31.8 MCHC 33.0 RDW 16.5 H Plt Count 179 D MPV 8.3 Absolute Neuts (auto) 4.0 Neutrophils % 59.3 Neutrophils % (Manual) 67.0 D Band Neutrophils % 0.0 Lymphocytes % 15.4 D Lymphocytes % (Manual) 17.5 D Monocytes % 23.4 H Monocytes % (Manual) 16 H Eosinophils % 1.4 D Eosinophils % (Manual) 0.0 D Basophils % 0.5 Basophils % (Manual) 0.0 Myelocytes % (Man) 0 Promyelocytes % (Man) 0 Blast Cells % (Manual) 0 Nucleated RBC % 0 Metamyelocytes 0 Hypochromia 0 Platelet Estimate Normal Polychromasia 0 Poikilocytosis 0 Anisocytosis 0 Microcytosis 0 Macrocytosis 0 PT with INR 15.10 H INR 1.28 H Sodium 133 L Potassium 3.7 Chloride 94 L Carbon Dioxide 30 Anion Gap 9 BUN 46 H Creatinine 12.7 H* Creat Clearance w eGFR 3.97 Random Glucose 92 Calcium 8.8 Phosphorus Magnesium Total Bilirubin 0.5 AST 17 ALT 22 Alkaline Phosphatase 140 H Creatine Kinase 154 Creatine Kinase Index 1.3 CK-MB (CK-2) 2.1 Troponin I 0.04 Total Protein 6.1 L Albumin 2.4 L Triglycerides Cholesterol Total LDL Cholesterol HDL Cholesterol Vitamin B12 TSH Blood Type Antibody Screen 04/29/18 04/29/18 04/30/18 12:07 12:07 05:30 WBC RBC Hgb Hct MCV MCH MCHC RDW Plt Count MPV Absolute Neuts (auto) Neutrophils % Neutrophils % (Manual) Band Neutrophils % Lymphocytes % Lymphocytes % (Manual) Monocytes % Monocytes % (Manual) Eosinophils % Eosinophils % (Manual) Basophils % Basophils % (Manual) Myelocytes % (Man) Promyelocytes % (Man) Blast Cells % (Manual) Nucleated RBC % Metamyelocytes Hypochromia Platelet Estimate Polychromasia Poikilocytosis Anisocytosis Microcytosis Macrocytosis PT with INR INR Sodium 135 L Potassium 4.1 Chloride 95 L Carbon Dioxide 32 Anion Gap 9 BUN 53 H Creatinine 15.5 H* Creat Clearance w eGFR 3.15 Random Glucose 90 Calcium 7.6 L Phosphorus 3.8 Magnesium 2.2 Total Bilirubin 0.5 AST 13 L ALT 19 Alkaline Phosphatase 108 Creatine Kinase Creatine Kinase Index CK-MB (CK-2) Troponin I Total Protein 5.0 L Albumin 1.9 L Triglycerides 62 50 Cholesterol 132 112 Total LDL Cholesterol 68 62 HDL Cholesterol 55 45 Vitamin B12 1281 H TSH 4.05 H D Blood Type O POSITIVE Antibody Screen Positive H 04/30/18 04/30/18 05:30 05:30 WBC 7.2 RBC 3.14 L Hgb 9.9 L Hct 29.9 L D MCV 95.1 MCH 31.6 MCHC 33.2 RDW 16.3 H Plt Count 147 MPV 8.4 Absolute Neuts (auto) 3.7 Neutrophils % 51.6 Neutrophils % (Manual) Band Neutrophils % Lymphocytes % 19.2 D Lymphocytes % (Manual) Monocytes % 26.7 H Monocytes % (Manual) Eosinophils % 2.0 Eosinophils % (Manual) Basophils % 0.5 Basophils % (Manual) Myelocytes % (Man) Promyelocytes % (Man) Blast Cells % (Manual) Nucleated RBC % 0 Metamyelocytes Hypochromia Platelet Estimate Polychromasia Poikilocytosis Anisocytosis Microcytosis Macrocytosis PT with INR INR Sodium Potassium Chloride Carbon Dioxide Anion Gap BUN Creatinine Creat Clearance w eGFR Random Glucose Calcium Phosphorus Magnesium Total Bilirubin AST ALT Alkaline Phosphatase Creatine Kinase Creatine Kinase Index CK-MB (CK-2) Troponin I Total Protein Albumin Triglycerides Cholesterol Total LDL Cholesterol HDL Cholesterol Vitamin B12 Cancelled TSH Blood Type Antibody Screen - ....Imaging Chest X-ray: Report Reviewed Cat Scan: Report Reviewed Assessment/Plan AMS,? syncope H/o weakness rt leg resolved ESRD on peritoneal dialysis Peripheral neuropathy MUltiple meyloma CAD Hepatatis B PLAN continue meds NEUro f/u neurocheck d/c planing renal f/u
[2018-04-30] MEDS ORDERED: VALSARTAN 80 MG TABLET (UD) PO SCH (10:00)
[2018-04-30] MEDS ORDERED: ASPIRIN 81 MG CHEWABLE TABLETS PO SCH (10:00)
--- NOTE | 2018-04-30 10:23 | PN ---
Progress Note, Physician Chief Complaint: Events noted Not in distress History of Present Illness: Patient was seen and examined. Awake and alert. Chart was reviewed Denies chest pain, SOB or palpitations - Current Medication List Current Medications: Active Medications Aspirin (Asa -) 81 mg PO DAILY [facility] Last Admin: 04/30/18 09:29 Dose: 81 mg Carvedilol (Coreg -) 6.25 mg PO BID [facility] Last Admin: 04/30/18 09:29 Dose: 6.25 mg Sevelamer Carbonate (Renvela Powder Packet -) 2.4 gm PO TIDCM [facility] Last Admin: 04/30/18 09:29 Dose: 2.4 gm Valsartan (Diovan -) 80 mg PO DAILY [facility] Last Admin: 04/30/18 09:29 Dose: 80 mg - Objective Vital Signs: Vital Signs Temperature 98.3 F 04/30/18 02:00 Pulse Rate 84 04/30/18 05:15 Respiratory Rate 20 04/30/18 02:00 Blood Pressure 156/69 04/30/18 05:15 O2 Sat by Pulse Oximetry (%) 98 04/29/18 20:35 Eyes: Yes: PERRL HENT: Yes: Atraumatic Neck: Yes: Supple Cardiovascular: Yes: Regular Rate and Rhythm, S1, S2 Respiratory: Yes: CTA Bilaterally Gastrointestinal: Yes: Normal Bowel Sounds, Soft. No: Tenderness Edema: No Additional Findings/Remarks: Review of Systems HEENT:denies headache, photophobia, blurring of vision Cardiovascular: denies chest pain, SOB, palpitations Respiratory: denies Cough, Sputum Production Gastrointestinal: denies: Nausea, Vomiting, Diarrhea, Constipation or Abdominal Discomfort Musculoskeletal: denies joint pains Endocrine: No Symptoms Reported Neuro: denies seizure, syncope Labs: CBC, BMP 04/30/18 05:30 04/30/18 05:30 INR, PTT INR 1.28 (0.83-1.09) H 04/29/18 12:07 Problem List - Problems (1) Altered mental status Code(s): R41.82 - ALTERED MENTAL STATUS, UNSPECIFIED Qualifiers: Altered mental status type: disorientation Qualified Code(s): R41.0 - Disorientation, unspecified (2) Hypertensive heart disease Code(s): I11.9 - HYPERTENSIVE HEART DISEASE WITHOUT HEART FAILURE Qualifiers: Heart failure presence: without heart failure Qualified Code(s): I11.9 - Hypertensive heart disease without heart failure (3) Weakness of right foot Code(s): M21.41 - FLAT FOOT [PES PLANUS] (ACQUIRED), RIGHT FOOT (4) Anemia Code(s): D64.9 - ANEMIA, UNSPECIFIED Qualifiers: Anemia type: due to chronic kidney disease Chronic kidney disease stage: on chronic dialysis Qualified Code(s): N18.6 - End stage renal disease; D63.1 - Anemia in chronic kidney disease; Z99.2 - Dependence on renal dialysis (5) End stage renal disease on dialysis Code(s): N18.6 - END STAGE RENAL DISEASE; Z99.2 - DEPENDENCE ON RENAL DIALYSIS (6) Multiple myeloma in remission Code(s): C90.01 - MULTIPLE MYELOMA IN REMISSION (7) Pericarditis Code(s): I31.9 - DISEASE OF PERICARDIUM, UNSPECIFIED Qualifiers: Pericarditis type: other type Chronicity: acute Qualified Code(s): I30.8 - Other forms of acute pericarditis Assessment/Plan 1. Right foot weakness since resolved, rule out TIA and h/o cerebrovascular disease 2. History of uremic pericarditis 3. 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 Anemia of CKD 5. History of multiple myeloma post autologous stem cell transplant 6. HTN/HCVD 7. LV systolic dysfunction currently euvolemic 8. CAD, probable endothelial dysfunction 9. PUD h/o GI bled PLAN: 1. Neuro and Renal input noted. Arrange PD as per renal in hospital or if being discharged resume as outpatient 2. Follow up with Dr. Gagan Graham in our office once discharged 3. Continue Candasartan 8 mg QD, Carvedilol 6.25 BID and ASA 81 QD 4. Ambulate Guilherme Willard MD
[2018-04-30 11:19] LABS: ANISOCYTOSIS 1+; MACROCYTOSIS 1+; PLATELET ESTIMATE DECREASED
[2018-04-30 11:39] VITALS: BP 138/75; PULSE 86
[2018-04-30 11:40] VITALS: TEMP 98.1
--- NOTE | 2018-05-01 11:42 | DS ---
DATE OF ADMISSION: 04/29/2018 DATE OF DISCHARGE: 04/30/2018 DATE OF DICTATION: 04/30/2018 HISTORY: The patient is a 67-year-old male with a history of end-stage renal disease on peritoneal dialysis, multiple myeloma status post stem cell replacement, hypertension, coronary artery disease admitted with right leg weakness and altered mental status. He could not stop the car while he was moving because he could not move his leg. He is not sure whether there is a single episode or not. MEDICATIONS: Reviewed at the time the patient came to the emergency room. PHYSICAL EXAMINATION: Vital Signs: Temperature 98.3, pulse rate 92, blood pressure 160/78, respirations 18, saturation 97. Vitals stable. General: Patient alert. Slightly confused. HEENT: Head normal. Neck: Normal. Chest: Clear. Cardiovascular: First and second sounds normal. Abdomen: Soft. Peritoneal dialysis catheter in place. Extremities: No edema. Neurologic: Patient is slightly drowsy. Speech clear. Cranial nerves 2-12 are intact. Sensation intact. Strength to upper extremities, motor 5/5 both upper extremities. Left lower extremity the power is 4/5, right lower extremity 5/5. EKG done shows sinus rhythm, normal rate, normal intervals. No acute ST-T wave changes. Chest x-ray negative. Lab shows CBC with WBC 6.8, hemoglobin 11.9, hematocrit 35.9, platelets 179. Sodium 133, potassium 3.7, chloride 94, bicarbonate 30, BUN 46, creatinine 12.7, sugar 92. CAT scan of the abdomen done shows moderate atrophy and periventricular chronic microvascular ischemic changes. 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 No acute intracranial pathology. The patient was seen by Renal and Neurology. Neurology impression was nonfocal exam significant for [id number] sensory peripheral neuropathy probably uremic etiology. Recommended to do the orthostatic . Vitamin B12 level is normal. Thyroid is normal. Recommend EEG as an outpatient. Further workup of the neuropathy. IMPRESSION: Unlikely to have been a focal neurological event but rather involved syncope versus loss of consciousness. PLAN: The patient was treated with home medication. Neurologic check done. The patient was stable on the floor. Patient discharged home on home medication in a stable condition. Recommended to follow with Neurology as an outpatient and Cardiology follow up and primary within 1 week. HORTENCIA DOBBS M.D. [id number]
== END 2018-04-30 13:37 | disposition home or self-care (01) | DRG 73 ==
LOC: JER 10:03 → JERBED 13:34 → J4W 18:45
PROVIDERS: ADMIT Family Medicine; ATTEND Family Medicine
DX: G62.9 Polyneuropathy, unspecified (principal); N18.6 End stage renal disease; C90.00 Multiple myeloma not having achieved remission; I13.11 Hypertensive heart and chronic kidney disease without heart failure, with stage 5 chronic kidney disease, or end stage renal disease; Z94.84 Stem cells transplant status; B19.10 Unspecified viral hepatitis B without hepatic coma; R55 Syncope and collapse; Z99.2 Dependence on renal dialysis; K27.9 Peptic ulcer, site unspecified, unspecified as acute or chronic, without hemorrhage or perforation; M10.9 Gout, unspecified; D63.1 Anemia in chronic kidney disease; I25.10 Atherosclerotic heart disease of native coronary artery without angina pectoris; N25.0 Renal osteodystrophy
CPT/HCPCS: 36415; 70450-TC; 71045-TC-FY; 80053; 80061; 82465; 82550; 82553; 82607; 83718; 83721; 83735; 84100; 84443; 84478; 84484; 85025; 85610; 86850; 86870; 86880; 86900; 86901; 86902; 99285-25

== ENCOUNTER 2018-08-29 14:33 | Emergency (ER) | payer OTHER ==
[2018-08-29 14:42] VITALS: BP 105/53; PULSE 65; TEMP 97.3; BMI 21.4
--- NOTE | 2018-08-29 14:42 | PDOC ---
Rapid Medical Evaluation Chief Complaint: Nausea/Vomiting Time Seen by Provider: 08/29/18 14:39 Medical Evaluation: Allergies Allergy/AdvReac Type Severity Reaction Status Date / Time No Known Allergies Allergy Verified 03/12/18 14:46 08/29/18 14:39 I have performed a brief in-person evaluation of this patient. The patient presents with a chief complaint of: h/o ESRD on dialysis, HNT present with complains of nausea, vomiting, diarrhea, urinary incontinence since this AM . Denies CP, SOB, palpitations, dizziness Pertinent physical exam findings: A&O x 3. I have ordered the following: cbc, cmp, UA, urine Cx The patient will proceed to the ED for further evaluation. Discharge Disposition - Diagnosis Nausea & vomiting Qualifiers: Vomiting type: unspecified Vomiting Intractability: non-intractable Qualified Code(s): R11.2 - Nausea with vomiting, unspecified - Referrals - Patient Instructions - Post Discharge Activity
--- NOTE | 2018-08-29 15:25 | PDOC ---
History of Present Illness - General History Source: Patient Exam Limitations: No Limitations <Lilliana Kaiser - Last Filed: 08/29/18 17:40> <Aspen Mcdonald - Last Filed: 08/29/18 19:02> - General Chief Complaint: Nausea/Vomiting Stated Complaint: VOMITING Time Seen by Provider: 08/29/18 14:39 Past History - Past Medical History Anemia: Yes Asthma: No Cancer: Yes (multiple myeloma) Cardiac Disorders: Yes (CAD) CVA: No COPD: No CHF: No Dementia: No Diabetes: No Dialysis: Yes (M-W-F) GI Disorders: No Disorders: No HTN: Yes Hypercholesterolemia: No Liver Disease: No Seizures: No Thyroid Disease: No - Surgical History Abdominal Surgery: Yes (UMBILICAL HERNIA REPAIR) Appendectomy: No Cardiac Surgery: No Cholecystectomy: No Gastric Stapling: No GI Surgery: No Lung Surgery: No Neurologic Surgery: No Orthopedic Surgery: Yes (right shoulder) - Immunization History Td Vaccination: Yes Immunization Up to Date: Yes - Suicide/Smoking/Psychosocial Hx Smoking Status: No Smoking History: Never smoked Have you smoked in the past 12 months: No Number of Cigarettes Smoked Daily: 0 Information on smoking cessation initiated: No Hx Alcohol Use: No Drug/Substance Use Hx: No Substance Use Type: None Hx Substance Use Treatment: No <Lilliana Kaiser - Last Filed: 08/29/18 17:40> <Aspen Mcdonald - Last Filed: 08/29/18 19:02> - Past Medical History Allergies/Adverse Reactions: Allergies Allergy/AdvReac Type Severity Reaction Status Date / Time No Known Allergies Allergy Verified 03/12/18 14:46 Home Medications: Ambulatory Orders Sevelamer Carbonate [Renvela -] 2,400 mg PO TID 08/08/13 Amlodipine Besylate [Norvasc -] 5 mg PO DAILY #30 tablet 07/04/17 Metoprolol Succinate [Toprol XL -] 25 mg PO HS 03/13/18 *Physical Exam - Vital Signs Last Vital Signs Temp Pulse Resp BP Pulse Ox 97.3 F L 65 18 105/53 L 96 08/29/18 14:38 08/29/18 14:38 08/29/18 14:38 08/29/18 14:38 08/29/18 14:38 - Physical Exam General Appearance: No: Apparent Distress Respiratory/Chest: positive: Lungs Clear, Normal Breath Sounds. negative: Respiratory Distress Cardiovascular: positive: Regular Rhythm, Regular Rate, S1, S2. negative: Murmur Gastrointestinal/Abdominal: positive: Normal Bowel Sounds, Soft. negative: Tender, Distended, Guarding, Rebound, Mass Integumentary: positive: Normal Color Neurologic: positive: Fully Oriented, Alert, Normal Mood/Affect <Lilliana Kaiser - Last Filed: 08/29/18 17:40> - Vital Signs Last Vital Signs Temp Pulse Resp BP Pulse Ox 97.3 F L 65 18 105/53 L 96 08/29/18 14:38 08/29/18 14:38 08/29/18 14:38 08/29/18 14:38 08/29/18 14:38 <Aspen Mcdonald - Last Filed: 08/29/18 19:02> Moderate Sedation - Procedure Monitoring Vital Signs: Procedure Monitoring Vital Signs Temperature 97.3 F L 08/29/18 14:38 Pulse Rate 65 08/29/18 14:38 Respiratory Rate 18 08/29/18 14:38 Blood Pressure 105/53 L 08/29/18 14:38 O2 Sat by Pulse Oximetry (%) 96 08/29/18 14:38 <Lilliana Kaiser - Last Filed: 08/29/18 17:40> - Procedure Monitoring Vital Signs: Procedure Monitoring Vital Signs Temperature 97.3 F L 08/29/18 14:38 Pulse Rate 65 08/29/18 14:38 Respiratory Rate 18 08/29/18 14:38 Blood Pressure 105/53 L 08/29/18 14:38 O2 Sat by Pulse Oximetry (%) 96 08/29/18 14:38 <Aspen Mcdonald - Last Filed: 08/29/18 19:02> ED Treatment Course - LABORATORY CBC & Chemistry Diagram: 08/29/18 15:10 08/29/18 15:10 <Lilliana Kaiser - Last Filed: 08/29/18 17:40> - LABORATORY CBC & Chemistry Diagram: 08/29/18 15:10 08/29/18 15:10 - ADDITIONAL ORDERS Additional order review: Laboratory Results 08/29/18 15:10 Sodium 132 L Potassium 3.8 Chloride 93 L Carbon Dioxide 31 Anion Gap 8 BUN 45 H Creatinine 13.0 H* Creat Clearance w eGFR 3.85 Random Glucose 130 H Calcium 9.0 Total Bilirubin 0.3 AST 16 ALT 21 Alkaline Phosphatase 157 H Total Protein 6.8 Albumin 3.0 L 08/29/18 15:10 RBC 3.62 L MCV 98.1 H MCHC 34.2 RDW 14.3 D MPV 9.3 D Neutrophils % 67.9 D Lymphocytes % 11.4 D Monocytes % 19.2 H Eosinophils % 0.8 Basophils % 0.7 - Medications Given in the ED: ED Medications Discontinued Medications Generic Name Dose Route Start Last Admin Trade Name Freq PRN Reason Stop Dose Admin Ondansetron HCl 4 mg 08/29/18 15:41 08/29/18 15:48 Zofran Odt - SL 08/29/18 15:42 4 mg ONCE ONE Administration <Aspen Mcdonald - Last Filed: 08/29/18 19:02> Medical Decision Making - Medical Decision Making 68 y/o M hx of HTN, ESRD (on peritoneal dialysis), multiple myeloma (in remission), PUD h/o GI bleed, gout, hep B, 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 Symptoms started after patient finished his dialysis, which he does at home. Per , patient also passed out for few seconds. Denies fever, chills, sob, cp, abd pain, diarrhea. Last BM was today. Denies other abdominal surgeries. Emesis/syncope Plan: Labs, EKG, orthostats 08/29/18 15:22 Orthostats done: Lyin/35 Sittin/63 Standin/61 Orthostats negative Labs unremarkable; kidney function at patient baseline Patient able to tolerate PO here and had no episode of emesis Given how well patient appears, will discharge Advised f/u with his PCP 08/29/18 17:40 <Lilliana Kaiser - Last Filed: 08/29/18 17:40> - Medical Decision Making The patient was seen and evaluated in conjunction with midlevel provider under my direct supervision, ancillary studies were reviewed. I agree with the plan as outlined by Lilliana Kaiser. HPI, workup/dispo as outlined. today had episode of fainting, x seconds after doing his PD. no cp or sob. no incontinence, anuric. however did have nausea and vomiting, dizziness preceding episode no f/c, no ap, bm changes. anuric last PD today, gets it QID at home. labs and l ytes with mild hyponatremia but not significantly deranged. ESRD. EKG nonischemic BP soft, borderline, earlier at home ~90/60s. here normal orthostatics, BP improved. dante PO, given antiemetic no cp or sob, doubt ACS or syncope, likely vasovagal in the setting of getting his PD and dysequilibrium. no neuro deficits. asymptomatic during ED. no infectious sx, no UA indicated as he does not urinate pt elects for discharge which is appropriate, return precautions given, resume PD when he gets home. pt and family verbalized understanding 08/29/18 16:19 08/29/18 19:00 <Aspen Mcdonald - Last Filed: 08/29/18 19:02> *DC/Admit/Observation/Transfer - Discharge Dispostion Decision to Admit order: No <Lilliana Kaiser - Last Filed: 08/29/18 17:40> <Aspen Mcdonald - Last Filed: 08/29/18 19:02> Diagnosis at time of Disposition: Nausea & vomiting Qualifiers: Vomiting type: unspecified Vomiting Intractability: non-intractable Qualified Code(s): R11.2 - Nausea with vomiting, unspecified - Discharge Dispostion Disposition: HOME Condition at time of disposition: Improved - Referrals Referrals: Tasha Coronado MD [Primary Care Provider] - 2 Days - Patient Instructions Printed Discharge Instructions: DI for Vomiting -- Adult Additional Instructions: Thank you for choosing [facility]. It was a pleasure taking care of you. Please continue follow-up with your regular doctor. Return to the Emergency Department if your symptoms worsen or persist, you have fever, shortness of breath, chest pain, severe abdominal pain, vomiting, dizziness, weakness of extremities (arms and/or legs), changes in vision or walking or other concerning symptoms.
[2018-08-29 15:39] LABS: BASO % 0.7 % (0-2.0); EOS % 0.8 % (0-4.5); HEMATOCRIT 35.5 % (35.4-49); HEMOGLOBIN 12.1 GM/dL (11.7-16.9); LYMPH % 11.4 % (8-40); MCH 33.5 pg (25.7-33.7); MCHC 34.2 g/dl (32.0-35.9); MEAN CELL VOLUME 98.1 fl (80-96); MEAN PLT VOLUME 9.3 fl (7.5-11.1); MONO % 19.2 % (3.8-10.2); NEUT % 67.9 % (42.8-82.8); PLATELET COUNT 172 K/MM3 (134-434); RBC 3.62 M/mm3 (4.00-5.60); RDW 14.3 % (11.9-15.9); WHITE BLOOD COUNT 8.9 K/mm3 (4.0-10.0)
[2018-08-29] MEDS ORDERED: ONDANSETRON *ODT* 4 MG TABLET SL ONE (15:41)
[2018-08-29] MEDS ORDERED: ONDANSETRON *ODT* 4 MG TABLET ONE (15:48)
[2018-08-29 15:55] LABS: ALK PHOS 157 U/L (45-117); ANION GAP 8 MMOL/L (8-16); BILIRUBIN,TOTAL 0.3 mg/dL (0.2-1); BLOOD UREA NITROGEN 45 mg/dL (7-18); CHLORIDE 93 mmol/L (98-107); CO2 31 mmol/L (21-32); GLUCOSE,RANDOM 130 mg/dL (74-106); POTASSIUM 3.8 mmol/L (3.5-5.1); SGOT/AST 16 U/L (15-37); SGPT/ALT 21 U/L (13-61); SODIUM 132 mmol/L (136-145); TOT PROT 6.8 g/dl (6.4-8.2)
[2018-08-29] MEDS ORDERED: DEXTROSE 5%-NORMAL SALINE 1,000 ML IV ONE (17:53)
--- NOTE | 2018-08-30 12:53 | EKG ---
Test Reason : Blood Pressure : / mmHG Vent. Rate : 059 BPM Atrial Rate : 059 BPM P-R Int : 210 ms QRS Dur : 104 ms QT Int : 450 ms P-R-T Axes : 046 001 040 degrees QTc Int : 445 ms SINUS BRADYCARDIA WITH 1ST DEGREE A-V BLOCK POSSIBLE LEFT ATRIAL ENLARGEMENT BORDERLINE ECG WHEN COMPARED WITH ECG OF 29-APR-2018 12:30, PREMATURE ATRIAL COMPLEXES ARE NO LONGER PRESENT VENT. RATE HAS DECREASED BY 38 BPM NONSPECIFIC T WAVE ABNORMALITY NO LONGER EVIDENT IN INFERIOR LEADS NONSPECIFIC T WAVE ABNORMALITY, IMPROVED IN LATERAL LEADS Confirmed by CHELLY LOZADA MD ([id number]) on 08/30/2018 12:53:05 PM Referred By: Confirmed By:CHELLY LOZADA MD
== END 2018-08-29 17:54 | disposition home or self-care (01) ==
LOC: JER 14:33
DX: R11.2 Nausea with vomiting, unspecified (principal); I25.10 Atherosclerotic heart disease of native coronary artery without angina pectoris; I13.2 Hypertensive heart and chronic kidney disease with heart failure and with stage 5 chronic kidney disease, or end stage renal disease; N18.6 End stage renal disease; I50.20 Unspecified systolic (congestive) heart failure; Z99.2 Dependence on renal dialysis; E87.1 Hypo-osmolality and hyponatremia; Z85.79 Personal history of other malignant neoplasms of lymphoid, hematopoietic and related tissues
CPT/HCPCS: 36415; 80053; 85025; 93005; 93010; 99283-25; Q0162

== ENCOUNTER 2019-08-29 16:43 | Emergency (ER) | payer OTHER ==
[2019-08-29 16:56] VITALS: TEMP 98.3; BMI 24.7
--- NOTE | 2019-08-29 20:22 | PDOC ---
History of Present Illness - General Chief Complaint: Rectal Bleed Stated Complaint: RECTAL BLEEDING Time Seen by Provider: 08/29/19 20:22 History Source: Patient Exam Limitations: No Limitations - History of Present Illness Initial Comments: 08/29/19 20:47 69yM w PMHx ESRD on peritoneal dialysis, heart arrhythmia presenting w painless rectal bleeding. 2am today had large hard stool, then small amounts of bright red blood. Had multiple BMs w small amounts of red blood throughout day without clots. Not on anticoagulation. Never had rectal bleeding before. Denies fever, chest pain, SOB, abd pain, urinary changes. Past History - Past Medical History Allergies/Adverse Reactions: Allergies Allergy/AdvReac Type Severity Reaction Status Date / Time No Known Allergies Allergy Verified 08/29/19 16:51 Home Medications: Ambulatory Orders Sevelamer Carbonate [Renvela -] 2,400 mg PO TID 08/08/13 Carvedilol 6.25 mg PO BID 08/29/19 Anemia: Yes Asthma: No Cancer: Yes (multiple myeloma) Cardiac Disorders: Yes (CAD) CVA: No COPD: No CHF: No Dementia: No Diabetes: No Dialysis: Yes (peritoneal dialysis) GI Disorders: No Disorders: No HTN: Yes Hypercholesterolemia: No Liver Disease: No Seizures: No Thyroid Disease: No - Surgical History Abdominal Surgery: Yes (UMBILICAL HERNIA REPAIR) Appendectomy: No Cardiac Surgery: No Cholecystectomy: No Gastric Stapling: No GI Surgery: No Lung Surgery: No Neurologic Surgery: No Orthopedic Surgery: Yes (right shoulder) - Immunization History Td Vaccination: Yes Immunization Up to Date: Yes - Psycho Social/Smoking Cessation Hx Smoking Status: No Smoking History: Unknown if ever smoked Have you smoked in the past 12 months: No Number of Cigarettes Smoked Daily: 0 Hx Alcohol Use: No Drug/Substance Use Hx: No Substance Use Type: None Hx Substance Use Treatment: No Review of Systems - Review of Systems Constitutional: No: Chills, Fever HEENTM: No: Eye Pain, Nose Pain Respiratory: No: Cough, Shortness of Breath Cardiac (ROS): No: Chest Pain, Palpitations ABD/GI: Yes: Abdominal Distended. No: Constipated, Diarrhea, Nausea, Vomiting : No: Burning, Dysuria Musculoskeletal: No: Back Pain, Joint Pain Integumentary: No: Bruising, Dryness Neurological: No: Headache, Tingling Psychiatric: No: Anxiety, Depression Endocrine: No: Intolerance to Cold, Intolerance to Heat Hematologic/Lymphatic: No: Anemia, Blood Clots *Physical Exam - Vital Signs Last Vital Signs Temp Pulse Resp BP Pulse Ox 98.3 F 98 H 18 113/58 L 08/29/19 16:54 08/29/19 16:54 08/29/19 16:54 08/29/19 16:54 - Physical Exam General Appearance: Yes: Nourished, Appropriately Dressed. No: Apparent Distress HEENT: positive: EOMI, MARTHA, Normal Voice. negative: Scleral Icterus (R), Scleral Icterus (L) Respiratory/Chest: positive: Lungs Clear, Normal Breath Sounds. negative: Chest Tender, Respiratory Distress Cardiovascular: positive: Regular Rhythm, S1, S2, Tachycardia. negative: Murmur Gastrointestinal/Abdominal: positive: Normal Bowel Sounds, Soft, Distended. negative: Tender, Guarding Integumentary: positive: Normal Color. negative: Dry Neurologic: positive: sales appointment coordinator II-XII NML intact, Fully Oriented, Alert, Normal Response, Responsive. negative: Numbness, Confused, Disoriented ED Treatment Course - LABORATORY CBC & Chemistry Diagram: 08/29/19 21:00 08/29/19 21:00 Medical Decision Making - Medical Decision Making 08/29/19 20:50 Rectal exam - no gross bleeding, no hemorrhoids, normal rectal tone CT A/P - free fluid in abdomen from peritoneal dialysis, bimal renal atrophy, enlarged retroperitoneal lymph nodes, L4-5 disk narrowing WBC 11, Na 131 Cl 92 --- 69yM w PMHx ESRD on peritoneal dialysis, heart arrhythmia presenting w painless rectal bleeding d/t unknown location (no bleeding seen on CT A/P). FOBT negative. No hemorrhoids. Hemodynamically stable. Not anemic Consulted Dr Marroquin education paraprofessional for Dr Coronado, agrees w plan to DC w GI f/u DC w GI f/u Discharge - Discharge Information Problems reviewed: Yes Clinical Impression/Diagnosis: Rectal bleeding Condition: Good Disposition: HOME - Admission No - Follow up/Referral Referrals: Kiki Grijalva DO [Staff Physician] - Eduar Dutton MD [Staff Physician] - Brayan Kelsey MD [Staff Physician] - - Patient Discharge Instructions Patient Printed Discharge Instructions: DI for Rectal Bleeding Additional Instructions: Call the referred adult live in caregiver Dr Dutton or Dr Kelsey for a follow up appointment for your rectal bleeding - Post Discharge Activity
--- NOTE | 2019-08-29 20:58 | PDOC ---
Attending Attestation - Resident Resident Name: Valdemar Kennedy - ED Attending Attestation I have performed the following: I have examined & evaluated the patient, The case was reviewed & discussed with the resident, I agree w/resident's findings & plan - HPI HPI: 08/29/19 20:57 Since 2AM rectal bleed with stools No blood thinners and no light headedness - Physicial Exam PE: 08/30/19 03:56 Pt has soft NT ND abd; pt has no fever no chills. Heart S1S2 RRR Lungs CTAB HEENT normal pt has good skin color; no jaundice and no pallor No flank pain Neuro intact; no gross focal deficits. 08/30/19 03:58 Guaiac negative; - Medical Decision Making 08/29/19 23:45 I spoke to ALFONSO Walker's partner, Dr. Marroquin, who agrees that pt is stable for d/c and he can go to Dr. Dutton/Low's office, as Dr. Espinoza, his usual GI is gone. Pt will follow as an outpatient. 08/30/19 03:58 Pt will take an uber home. 08/30/19 04:00 Pt understands that he should follow with GI as an outpatient for endocopy and colonoscopy
[2019-08-29 21:52] LABS: BASO % 0.4 % (0-2.0); EOS % 0.1 % (0-4.5); HEMATOCRIT 43.6 % (35.4-49); HEMOGLOBIN 14.8 GM/dL (11.7-16.9); LYMPH % 9.9 % (8-40); MCH 33.8 pg (25.7-33.7); MCHC 33.9 g/dl (32.0-35.9); MEAN CELL VOLUME 99.6 fl (80-96); MONO % 18.1 % (3.8-10.2); NEUT % 71.5 % (42.8-82.8); PLATELET COUNT 136 K/MM3 (134-434); RBC 4.38 M/mm3 (4.00-5.60); RDW 13.6 % (11.9-15.9); WHITE BLOOD COUNT 11.4 K/mm3 (4.0-10.0)
[2019-08-29 22:27] LABS: INR 1.24 (0.83-1.09); PROTHROMBIN TIME (PATIENT) 14.7 SEC (9.7-13.0)
[2019-08-29 22:33] LABS: ALBUMIN 3.2 g/dl (3.4-5.0); BILIRUBIN,TOTAL 0.5 mg/dL (0.2-1); BLOOD UREA NITROGEN 35.8 mg/dL (7-18); CALCIUM 9.1 mg/dL (8.5-10.1); POTASSIUM 3.8 mmol/L (3.5-5.1); TOT PROT 7.3 g/dl (6.4-8.2)
[2019-08-29 22:41] LABS: CREATININE 12.2 mg/dL (0.55-1.3)
[2019-08-29 23:38] VITALS: BP 130/65; PULSE 91
--- NOTE | 2019-08-30 17:06 | EKG ---
Test Reason : Blood Pressure : / mmHG Vent. Rate : 088 BPM Atrial Rate : 088 BPM P-R Int : 196 ms QRS Dur : 080 ms QT Int : 380 ms P-R-T Axes : 057 018 063 degrees QTc Int : 459 ms SINUS RHYTHM WITH PREMATURE ATRIAL COMPLEXES POSSIBLE LEFT ATRIAL ENLARGEMENT BORDERLINE ECG WHEN COMPARED WITH ECG OF 29-AUG-2018 15:37, PREMATURE ATRIAL COMPLEXES ARE NOW PRESENT VENT. RATE HAS INCREASED BY 29 BPM QRS DURATION HAS DECREASED CLINICAL CORRELATION IS RECOMMENDED Confirmed by YVONNE HOLLAND MD ([id number]) on 08/30/2019 5:05:52 PM Referred By: Confirmed By:YVONNE HOLLAND MD
== END 2019-08-29 23:50 | disposition home or self-care (01) ==
LOC: JER 16:43
DX: I12.0 Hypertensive chronic kidney disease with stage 5 chronic kidney disease or end stage renal disease (principal); K62.5 Hemorrhage of anus and rectum; N18.6 End stage renal disease; N17.8 Other acute kidney failure; Z99.2 Dependence on renal dialysis; I25.10 Atherosclerotic heart disease of native coronary artery without angina pectoris; I49.9 Cardiac arrhythmia, unspecified; D64.9 Anemia, unspecified; Z85.79 Personal history of other malignant neoplasms of lymphoid, hematopoietic and related tissues
CPT/HCPCS: 36415; 74176-TC; 80053; 82272; 85025; 85610; 86850; 86900; 86901; 93005; 93010; 99285-25

== ENCOUNTER 2020-07-20 14:35 | Inpatient (IN) | payer OTHER ==
[2020-07-20 15:14] VITALS: TEMP 97.2; BMI 20.3
[2020-07-20] MEDS ORDERED: SODIUM CHLORIDE 500 ML IV STA (16:04)
[2020-07-20 18:04] LABS: HEMOGLOBIN 16.3 GM/dL (11.7-16.9); MCH 33.2 pg (25.7-33.7); MEAN CELL VOLUME 97.6 fl (80-96); RBC 4.92 M/mm3 (4.00-5.60); RDW 13.5 % (11.9-15.9); WHITE BLOOD COUNT 4.1 K/mm3 (4.0-10.0)
[2020-07-20 18:24] LABS: CALCIUM 9.1 mg/dL (8.5-10.1)
[2020-07-20 18:25] LABS: ALBUMIN 3.3 g/dl (3.4-5.0); BLOOD UREA NITROGEN 32.3 mg/dL (7-18); MAGNESIUM 2.5 mg/dL (1.8-2.4)
[2020-07-20 18:29] LABS: BILIRUBIN,TOTAL 0.7 mg/dL (0.2-1); TOT PROT 7.7 g/dl (6.4-8.2)
[2020-07-20 18:36] LABS: CREATININE 14.3 mg/dL (0.55-1.3)
[2020-07-20 18:56] LABS: PLATELET ESTIMATE DECREASED
[2020-07-20 19:33] LABS: MEAN PLT VOLUME 12.7 fl (7.5-11.1); PLATELET COUNT 75 K/MM3 (134-434)
[2020-07-21 05:20] VITALS: BP 127/68; PULSE 89
== END 2020-07-20 22:24 | disposition left against medical advice (07) | DRG 177 ==
LOC: JER 14:35 → JERBED 20:52
PROVIDERS: ADMIT Internal Medicine; ATTEND Internal Medicine
DX: U07.1 COVID-19 (principal); N18.6 End stage renal disease; C90.00 Multiple myeloma not having achieved remission; I12.0 Hypertensive chronic kidney disease with stage 5 chronic kidney disease or end stage renal disease; I25.10 Atherosclerotic heart disease of native coronary artery without angina pectoris; Z99.2 Dependence on renal dialysis
CPT/HCPCS: 36415; 71046-TC-FY; 74176-TC; 80053; 83605; 83615; 83690; 83735; 85025; 86140; 93005; 93010; 99285-25; C9803; U0003

== ENCOUNTER 2023-07-21 13:23 | Emergency (ER) | payer OTHER ==
[2023-07-21 13:29] VITALS: BP 105/58; PULSE 77; RESP 18; TEMP 97.5; BMI 20.6
== END 2023-07-21 18:08 | disposition home or self-care (01) ==
LOC: JER 13:23
DX: M79.89 Other specified soft tissue disorders (principal); T82.868A Thrombosis due to vascular prosthetic devices, implants and grafts, initial encounter; M79.602 Pain in left arm
CPT/HCPCS: 93931; 99284-25